=== PATIENT | male | born 1955 | race Caucasian/White ===

== ENCOUNTER 2017-05-04 09:58 | Inpatient (IN) | payer OTHER ==
[~2017-05-04] VITALS: Ht 167.6 cm; Wt 63.6 kg
[2017-05-04 10:02] VITALS: Ht 167.6 cm; Wt 63.6 kg
[2017-05-04] MEDS ORDERED: FAMOTIDINE 20 MG INJ IV STA (10:20)
[2017-05-04] MEDS ORDERED: ONDANSETRON 4 MG INJ IV STA (10:20)
[2017-05-04] MEDS ORDERED: SOD CHLORIDE 0.9% 1,000 ML IV STA (10:20)
[2017-05-04] MEDS ORDERED: morphine 4 MG/ML VIAL IV STA (10:55)
[2017-05-04 10:57] LABS: BASOPHIL # 0.1 10^3/ul (0.0-0.1); BASOPHILS % 0.5 % (0.0-2.0); HEMATOCRIT 41.5 % (42.0-52.0); HEMOGLOBIN 13.6 g/dl (14.0-18.0); LYMPHOCYTES # 2.7 10^3/ul (0.8-2.9); LYMPHOCYTES % 18.1 % (15.0-51.0); MEAN CORPUSCULAR HEMOGLOBIN 28.3 pg (29.0-33.0); MEAN CORPUSCULAR HGB CONC 32.8 g/dl (32.0-37.0); MEAN CORPUSCULAR VOLUME 86.5 fl (82.0-101.0); MEAN PLATELET VOLUME 10.5 fl (7.4-10.4); MONOCYTE # 1.1 10^3/ul (0.3-0.9); MONOCYTES % 7.3 % (0.0-11.0); NEUTROPHIL # 9.7 10^3/ul (1.6-7.5); NEUTROPHILS % 66.4 % (39.0-77.0); PLATELET COUNT 369 10^3/UL (140-415); RED CELL DISTRIBUTION WIDTH 13.9 % (11.5-14.5); WHITE BLOOD COUNT 14.6 10^3/ul (4.8-10.8)
[2017-05-04 11:05] LABS: ADD UMIC YES; UR ASCORBIC ACID NEGATIVE (NEGATIVE); UR BILIRUBIN (Dip) NEGATIVE (NEGATIVE); UR BLOOD (Dip) 1+ mg/dL (NEGATIVE); UR CLARITY CLEAR (CLEAR); UR COLOR YELLOW (YELLOW); UR GLUCOSE (Dip) 1+ mg/dL (NEGATIVE); UR KETONES (Dip) TRACE mg/dL (NEGATIVE); UR LEUKOCYTE ESTERASE (Dip) NEGATIVE Leu/ul (NEGATIVE); UR MUCUS FEW /HPF (NONE SEEN); UR NITRITE (Dip) NEGATIVE (NEGATIVE); UR RBC 2 /HPF (0-5); UR SPECIFIC GRAVITY (Dip) 1.016 (1.003-1.030); UR TOTAL PROTEIN (Dip) NEGATIVE (NEGATIVE); UR UROBILINOGEN (Dip) 2+ mg/dL (NEGATIVE)
[2017-05-04 11:21] LABS: ALANINE AMINOTRANSFERASE 23 IU/L (13-69); ALBUMIN 3.7 g/dl (3.3-4.9); ALBUMIN/GLOBULIN RATIO 0.94; ALKALINE PHOSPHATASE 114 IU/L (42-121); ANION GAP 15 (8-16); ASPARTATE AMINO TRANSFERASE 25 IU/L (15-46); BILIRUBIN,INDIRECT 0.7 mg/dl (0-1.1); BILIRUBIN,TOTAL 0.7 mg/dl (0.2-1.3); BLOOD UREA NITROGEN 9 mg/dl (7-20); CALCIUM 8.5 mg/dl (8.4-10.2); CARBON DIOXIDE 22 mmol/L (21-31); CHLORIDE 101 mmol/L (97-110); CREATININE 0.75 mg/dl (0.61-1.24); GLUCOSE 264 mg/dl (70-220); SODIUM 134 mmol/L (135-144); TOTAL PROTEIN 7.6 g/dl (6.1-8.1)
--- NOTE | 2017-05-04 11:30 | RADRPT ---
PROCEDURE: CT Abdomen and Pelvis without contrast. CLINICAL INDICATION: Abdominal pain TECHNIQUE: CT scan of the abdomen and pelvis was performed on a multidetector high-resolution CT s [employer] without intravenous contrast. Coronal and sagittal reformatted images were obtained from the axial source images. Images were reviewed on a high-resolution PACS workstation. The total exam CTD I equals 8mGy and the total exam DLP equals 480mGy-cm. One or more of the following dose reduction t echniques were used: Automated exposure control, Adjustment of the mA and/or kV according to patient size, and/or use of iterative reconstruction technique. DICOM images are available. COMPARISON: None. FINDINGS: Evaluation of the solid organs is limited given the lack of intravenous contrast administration. Bibasilar atelectasis and scarring. Noncontrast liver, adrenals and spleen are grossly unremarkable. No pancreatic ductal dilatation chris ntified. Gallbladder is partially compressed. Circumferential wall thickening of the gastric body with a large gastrohepatic and peripancreatic ly mph nodes. No hydronephrosis. No renal or ureteral stone. 5.6 x 7.4 cm left abdominal sigmoid colon mass with near complete occlusion of the lumen. Diffuse co lonic diverticulosis. There is an additional mass-like lesion at the inferior aspect of the appendix measuring 5.2 x 5.5 cm with surrounding inflammatory stranding. Enlarged scattered mesenteric and r etroperitoneal lymph nodes are identified. Additional soft tissue mass adjacent to the gallbladder measures 5.9 x 7.1 cm with surrounding infla mmation. No significant ascites or evidence of pneumoperitoneum. Aortoiliac atherosclerosis. IMPRESSION: Multiple intra-abdominal masses are identified involving the stomach, sigmoid colon, gallbladder fos sa region, and tip of the appendix with surrounding inflammatory change. There is also enlarged mese nteric and retroperitoneal lymphadenopathy. The findings are most compatible with metastatic disease and/or lymphoma. Follow-up contrast-enhanced CT/MR imaging and PET imaging can be obtained if zoran anted. A call report was made to Dr. Urbina at 05/04/2017 11:28:44 AM. RPTAT: AA .Marquez Greer MD, Date Time Electronically viewed and signed by .Marquez Greer MD, on 05/04/2017 11:29 .T/
[2017-05-04 11:32] LABS: TROPONIN-I < 0.012 ng/ml (0.00-0.12)
[2017-05-04] MEDS ORDERED: ACET-2047 PO (12:46)
[2017-05-04] MEDS ORDERED: PIPER-TAZO 3.375 GM IV (PMX) 50 ML IV ONE (13:00)
[2017-05-04] MEDS ORDERED: SOD CHLORIDE 0.9% 1,000 ML IV SCH (13:28)
[2017-05-04] MEDS ORDERED: ONDANSETRON 4 MG INJ IV PRN ×2 (13:30→14:30)
[2017-05-04] MEDS ORDERED: ACETAMINOPHEN 325 MG TAB PO PRN ×2 (13:30→14:30)
--- NOTE | 2017-05-04 13:35 | ERD ---
ER Documentation Chief Complaint Chief Complaint abdominal pain and vomiting x 3 weeks HPI This is a 61-year-old male with no previous medical conditions ,according to the patient and patient's family members, who presents to the emergency room for evaluation of abdominal pain and vomiting. This patient states that he has had these symptoms for approximately 3 weeks duration. He localizes the abdominal pain to the total portion of his abdomen and describes as a crampy and achy sensation. He states is somewhat improved with vomiting. The patient denies any blood in the vomit and denies having any diarrhea or fevers or chills and came to the ER today for evaluation of his symptoms. He denies any aggravating factors for his symptoms ROS All systems reviewed and are negative except as per history of present illness. Medications Home Meds Reported Medications Acetaminophen* (Acetaminophen*) 650 Mg Tablet, 650 MG PO Q6H Y for PAIN AND OR ELEVATED TEMP, #30 TAB 05/04/17 Allergies Allergies: Coded Allergies: No Known Allergy (Unverified , 05/04/17) PMhx/Soc Medical and Surgical Hx: pt denies Medical Hx, pt denies Surgical Hx Hx Alcohol Use: No Hx Substance Use: No Hx Tobacco Use: No Smoking Status: Never smoker Physical Exam Vitals Vital Signs Date Time Temp Pulse Resp B/P Pulse Ox O2 Delivery O2 Flow Rate FiO2 05/04/17 10:02 98.3 89 18 128/77 96 Physical Exam INITIAL VITAL SIGNS: Reviewed by me GENERAL: The patient is well developed and appropriate for usual state of health in no apparent distress HEENT: Pupils equal, round, and reactive to light. EOMI. There is no scleral icterus. NECK: C-spine is soft and supple, there is no meningismus. There is no cervical lymphadenopathy. LUNGS: Clear to auscultation bilaterally. There are no rales, wheezes or rhonchi. HEART: Regular rate and rhythm, no murmurs, clicks, rubs or gallops. ABDOMEN: Tender to palpation in the left upper quadrant and left lower quadrant , mild guarding EXTREMITIES: There is no peripheral cyanosis or edema. No focal swelling or erythema. NEUROLOGICAL: The patient moves all four extremities with 5/5 strength. Cranial nerves II - XII are intact. Normal gait. Alert and oriented SKIN: There is no apparent rash or petechiae. HEME/LYMPHATIC: There is no evidence of excessive bruising or lymphedema. PSYCHIATRIC: The patient does not appear anxious or depressed. Result Diagram: 05/04/17 1035 05/04/17 1035 Results 24 hrs Laboratory Tests Test 05/04/17 10:35 White Blood Count 14.610^3/ul Red Blood Count 4.8010^6/ul Hemoglobin 13.6g/dl Hematocrit 41.5% Mean Corpuscular Volume 86.5fl Mean Corpuscular Hemoglobin 28.3pg Mean Corpuscular Hemoglobin Concent 32.8g/dl Red Cell Distribution Width 13.9% Platelet Count 39346^3/UL Mean Platelet Volume 10.5fl Neutrophils % 66.4% Lymphocytes % 18.1% Monocytes % 7.3% Eosinophils % 7.0% Basophils % 0.5% Nucleated Red Blood Cells % 0.0/100WBC Neutrophils # 9.710^3/ul Lymphocytes # 2.710^3/ul Monocytes # 1.110^3/ul Eosinophils # 1.010^3/ul Basophils # 0.110^3/ul Nucleated Red Blood Cells # 0.010^3/ul Urine Color YELLOW Urine Clarity CLEAR Urine pH 5.0 Urine Specific [place] 1.016 Urine Ketones TRACEmg/dL Urine Nitrite NEGATIVEmg/dL Urine Bilirubin NEGATIVEmg/dL Urine Urobilinogen 2+mg/dL Urine Leukocyte Esterase NEGATIVELeu/ul Urine Microscopic RBC 2/HPF Urine Microscopic WBC 1/HPF Urine Mucus FEW/HPF Urine Hemoglobin 1+mg/dL Urine Glucose 1+mg/dL Urine Total Protein NEGATIVEmg/dl Sodium Level 134mmol/L Potassium Level 4.0mmol/L Chloride Level 101mmol/L Carbon Dioxide Level 22mmol/L Anion Gap 15 Blood Urea Nitrogen 9mg/dl Creatinine 0.75mg/dl Glucose Level 264mg/dl Calcium Level 8.5mg/dl Total Bilirubin 0.7mg/dl Direct Bilirubin 0.00mg/dl Indirect Bilirubin 0.7mg/dl Aspartate Amino Transf (AST/SGOT) 25IU/L Alanine Aminotransferase (ALT/SGPT) 23IU/L Alkaline Phosphatase 114IU/L Troponin I < 0.012ng/ml Total Protein 7.6g/dl Albumin 3.7g/dl Globulin 3.90g/dl Albumin/Globulin Ratio 0.94 Lipase 84U/L Current Medications Medications (Trade) Dose Ordered Sig/Mary Route PRN Reason Start Time Stop Time Status Last Admin Dose Admin Sodium Chloride (NS) 1,000 ml @ 1,000 mls/hr Q1H STAT IV 05/04/17 10:20 05/04/17 11:19 DC 05/04/17 10:48 Ondansetron HCl (Zofran Inj) 4 mg ONCE STAT IV 05/04/17 10:20 05/04/17 10:22 DC 05/04/17 10:48 Famotidine (Pepcid Iv) 20 mg ONCE STAT IV 05/04/17 10:20 05/04/17 10:22 DC 05/04/17 10:46 Morphine Sulfate 4 mg 4 mg ONCE STAT IV 05/04/17 10:55 05/04/17 10:56 DC 05/04/17 11:00 Piperacillin Sod/ Tazobactam Sod (Zosyn 3.375gm/ 50 ml (Pmx)) 50 ml @ 100 mls/hr ONCE ONCE IV 05/04/17 13:00 05/04/17 13:29 DC 05/04/17 13:26 Procedures/MDM CT abdomen pelvis without: Multiple intra-abdominal masses are identified involving the stomach, sigmoid colon, gallbladder fossa region, and tip of the appendix with surrounding inflammatory change. There is also enlarged mesenteric and retroperitoneal lymphadenopathy. The findings are most compatible with metastatic disease and/or lymphoma. Follow-up contrast- enhanced CT/MR imaging and PET imaging can be obtained if warranted. This 61-year-old male presents to the ER for evaluation of abdominal pain, nausea and vomiting. According to the patient's family members he does not have any previous medical conditions however after further valuation in questioning this patient has not seen a physician in over a year. This patient did have some tenderness in his abdomen, and a CT of the abdomen and pelvis was obtained which shows multiple intra-abdominal masses involving organs such as the stomach, sigmoid colon, and gallbladder fossa region. This patient was given morphine for his pain, and I have started the patient on Zosyn at this time. I have spoken with the patient in regards to his CAT scan findings and he was completely unaware of any type of abdominal mass that he might have. Given this patient's unfortunate circumstance and inability to obtain any follow -up or establish primary care this patient will be placed in for admission at this time. His pain is controlled with morphine and nausea and vomiting is controlled with Zofran at this time. I have contacted her general surgeon on- call, Dr. Hernadez who would like gastroenterology to be consulted. I have relayed this information to the admitting physician Dr. Steward who accepts the patient. This patient is hemodynamically stable and will be placed in for admission the [facility] floor Departure Diagnosis: Primary Impression: Colon cancer Additional Impressions: Mass of stomach Abdominal pain Nausea & vomiting Condition: SYDNEY Covarrubias DO May 04, 2017 13:35
[2017-05-04] MEDS ORDERED: BISACODYL (EC) 5 MG TAB PO PRN (14:30)
[2017-05-04] MEDS ORDERED: IBUPROFEN 600 MG TAB PO PRN (14:30)
[2017-05-04] MEDS ORDERED: morphine 2 MG INJ IV PRN (14:30)
[2017-05-04] MEDS ORDERED: NACL 0.9% 3 ML SYG IV SCH (14:30)
[2017-05-04] MEDS ORDERED: DOCUSATE SODIUM 100 MG CAP PO PRN (14:30)
[2017-05-04] MEDS ORDERED: MAGNESIUM HYDROXIDE 30ML CUP PO PRN (14:30)
[2017-05-04] MEDS ORDERED: ONDANSETRON 4 MG TAB PO PRN (14:30)
--- NOTE | 2017-05-04 15:02 | HP ---
Date/Time of Note Date/Time of Note DATE: 05/04/17 TIME: 14:58 Assessment/Plan VTE Prophylaxis VTE Prophylaxis Intervention: SCD's Assessment/Plan Assessment/Plan 61 yo M presents with 3 weeks of abd pain found to have multiple intraabdominal masses concerning for malignancy of abd primary v lymphoma -gen surg and GI consults for tissue sampling -pain control -general diet as no impending surgeries planned -leukocytosis likely reactive. no compelling indication for abx -BG high, will check a1c HPI/ROS Admit Date/Time Admit Date/Time Hx of Present Illness Of note, pt primarily Colombian speaking. language line used to facilitate communication. CC abd pain x 3 weeks HPI 61 yo M with no known chronic medical problems on no chronic medications presents with 3 weeks of abd pain and vomitting. reports weight loss of unknown amt over these past 3 weeks. no diarrhea, +constipation for the past 2 days no rashes, no chest pain, no SOB, no edema fam hx: sister with breast ca PMH/Family/Social Social History lives in the community Smoking Status: Never smoker Exam/Review of Systems Vital Signs Vitals Vital Signs Date Time Temp Pulse Resp B/P Pulse Ox O2 Delivery O2 Flow Rate FiO2 05/04/17 10:02 98.3 89 18 128/77 96 Exam Exam nad EOMI MMM no mrg lungs clear abd soft, nondistended no rashes no edema labs reviewed, BG high imaging with abd tumors Labs Result Diagram: 05/04/17 1035 05/04/17 1035 Medications Medications Current Medications Sodium Chloride (NS) 1,000 ml @ 80 mls/hr [id number] IV ; Start 05/04/17 at 13:28 ; Stop 05/05/17 at 01:57 Ondansetron HCl (Zofran Tab) 4 mg Q6H PRN PO NAUSEA AND/OR VOMITING; Start at 14:30 Ondansetron HCl (Zofran Inj) 4 mg Q6H PRN IV NAUSEA AND/OR VOMITING; Start at 14:30 Acetaminophen (Tylenol Tab) 650 mg Q6H PRN PO PAIN LEVEL 1-3 OR FEVER; Start 05/04/17 at 14:30 Ibuprofen (Motrin) 600 mg Q6H PRN PO PAIN LEVEL 1-3; Start 05/04/17 at 14:30 Acetaminophen/ Hydrocodone Bitart ([place] (5/325)) 1 tab Q6H PRN PO MODERATE PAIN LEVEL 4-6; Start 05/04/17 at 14:30 Morphine Sulfate (morphine) 2 mg Q4H PRN IV SEVERE PAIN LEVEL 7-10; Start at 14:30 Docusate Sodium (Colace) 100 mg Q12H PRN PO CONSTIPATION; Start 05/04/17 at 14 :30 Magnesium Hydroxide (Milk Of Mag) 30 ml DAILY PRN PO CONSTIPATION; Start 05/04 at 14:30 Bisacodyl (Dulcolax) 5 mg DAILY PRN PO CONSTIPATION; Start 05/04/17 at 14:30 KONRAD WOO MD May 04, 2017 15:02
[2017-05-04 15:36] VITALS: BP 92/62; PULSE 81; RESP 16
--- NOTE | 2017-05-04 17:43 | CONS ---
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 No acute surgical issues at this point 2. further workup to determine primary 3. may need EGD or colonoscopy or percutaneous biopsy of gallbladder lesion Consultation Date/Type/Reason Admit Date/Time Date of Consultation: May 04, 2017 Reason for Consultation abdominal pain Hx of Present Illness 61-year-old male, who is in his usual state of health, developed acute onset of abdominal pain. Patient has had 13 day history of nausea and emesis. He was hopeful that his symptoms would resolve on their own. However, his symptoms persisted and he presented to the er. Past Medical History Medical History: no pertinent history Past Surgical History Past Surgical Hx: no surgical history Family History Significant Family History: no pertinent family hx Social History Alcohol Use: none Smoking Status: Never smoker Exam/Review of Systems Vital Signs Vitals Vital Signs Date Time Temp Pulse Resp B/P Pulse Ox O2 Delivery O2 Flow Rate FiO2 05/04/17 15:36 98.2 81 16 92/62 94 Room Air Exam Constitutional: alert, oriented, well developed Psych: no complaints Eyes: nl conjunctiva ENMT: nl external ears & nose Neck: supple Respiratory: clear to auscultation Cardiovascular: regular rate and rhythm Gastrointestinal: other (, nondistended, some periumbilical tenderness), soft Musculoskeletal: nl extremities to inspection Neurological: 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 Skin: nl turgor Results Result Diagram: 05/04/17 1035 05/04/17 1035 Results 24 hrs Laboratory Tests Test 05/04/17 10:35 White Blood Count 14.6 H Red Blood Count 4.80 Hemoglobin 13.6 L Hematocrit 41.5 L Mean Corpuscular Volume 86.5 Mean Corpuscular Hemoglobin 28.3 L Mean Corpuscular Hemoglobin Concent 32.8 Red Cell Distribution Width 13.9 Platelet Count 369 Mean Platelet Volume 10.5 H Neutrophils % 66.4 Lymphocytes % 18.1 Monocytes % 7.3 Eosinophils % 7.0 Basophils % 0.5 Nucleated Red Blood Cells % 0.0 Neutrophils # 9.7 H Lymphocytes # 2.7 Monocytes # 1.1 H Eosinophils # 1.0 H Basophils # 0.1 Nucleated Red Blood Cells # 0.0 Urine Color YELLOW Urine Clarity CLEAR Urine pH 5.0 Urine Specific [place] 1.016 Urine Ketones TRACE A Urine Nitrite NEGATIVE Urine Bilirubin NEGATIVE Urine Urobilinogen 2+ H Urine Leukocyte Esterase NEGATIVE Urine Microscopic RBC 2 Urine Microscopic WBC 1 Urine Mucus FEW A Urine Hemoglobin 1+ H Urine Glucose 1+ H Urine Total Protein NEGATIVE Sodium Level 134 L Potassium Level 4.0 Chloride Level 101 Carbon Dioxide Level 22 Anion Gap 15 Blood Urea Nitrogen 9 Creatinine 0.75 Glucose Level 264 H Calcium Level 8.5 Total Bilirubin 0.7 Direct Bilirubin 0.00 Indirect Bilirubin 0.7 Aspartate Amino Transf (AST/SGOT) 25 Alanine Aminotransferase (ALT/SGPT) 23 Alkaline Phosphatase 114 Troponin I < 0.012 Total Protein 7.6 Albumin 3.7 Globulin 3.90 H Albumin/Globulin Ratio 0.94 Lipase 84 Imaging Free Text/Dictation PROCEDURE: CT Abdomen and Pelvis without contrast. CLINICAL INDICATION: Abdominal pain TECHNIQUE: CT scan of the abdomen and pelvis was performed on a multidetector high-resolution CT scanner without intravenous contrast. Coronal and sagittal reformatted images were obtained from the axial source images. Images were reviewed on a high-resolution PACS workstation. The total exam CTDI equals 8mGy and the total exam DLP equals 480mGy-cm. One or more of the following dose reduction techniques were used: Automated exposure control, Adjustment of the mA and/or kV according to patient size, and/or use of iterative reconstruction technique. DICOM images are available. COMPARISON: None. FINDINGS: Evaluation of the solid organs is limited given the lack of intravenous contrast administration. Bibasilar atelectasis and scarring. Noncontrast liver, adrenals and spleen are grossly unremarkable. No pancreatic ductal dilatation identified. Gallbladder is partially compressed. Circumferential wall thickening of the gastric body with a large gastrohepatic and peripancreatic lymph nodes. No hydronephrosis. No renal or ureteral stone. 5.6 x 7.4 cm left abdominal sigmoid colon mass with near complete occlusion of the lumen. Diffuse colonic diverticulosis. There is an additional mass-like lesion at the inferior aspect of the appendix measuring 5.2 x 5.5 cm with surrounding inflammatory stranding. Enlarged scattered mesenteric and retroperitoneal lymph nodes are identified. Additional soft tissue mass adjacent to the gallbladder measures 5.9 x 7.1 cm with surrounding inflammation. No significant ascites or evidence of pneumoperitoneum. Aortoiliac atherosclerosis. IMPRESSION: Multiple intra-abdominal masses are identified involving the stomach, sigmoid colon, gallbladder fossa region, and tip of the appendix with surrounding inflammatory change. There is also enlarged mesenteric and retroperitoneal lymphadenopathy. The findings are most compatible with metastatic disease and/ or lymphoma. Follow-up contrast-enhanced CT/MR imaging and PET imaging can be obtained if warranted. Medications Medications Current Medications Sodium Chloride (NS) 1,000 ml @ 80 mls/hr [id number] IV ; Start 05/04/17 at 13:28 ; Stop 05/05/17 at 01:57 Ondansetron HCl (Zofran Tab) 4 mg Q6H PRN PO NAUSEA AND/OR VOMITING; Start at 14:30 Ondansetron HCl (Zofran Inj) 4 mg Q6H PRN IV NAUSEA AND/OR VOMITING; Start at 14:30 Acetaminophen (Tylenol Tab) 650 mg Q6H PRN PO PAIN LEVEL 1-3 OR FEVER; Start 05/04/17 at 14:30 Ibuprofen (Motrin) 600 mg Q6H PRN PO PAIN LEVEL 1-3; Start 05/04/17 at 14:30 Acetaminophen/ Hydrocodone Bitart ([place] (5/325)) 1 tab Q6H PRN PO MODERATE PAIN LEVEL 4-6; Start 05/04/17 at 14:30 Morphine Sulfate (morphine) 2 mg Q4H PRN IV SEVERE PAIN LEVEL 7-10; Start at 14:30 Docusate Sodium (Colace) 100 mg Q12H PRN PO CONSTIPATION; Start 05/04/17 at 14 :30 Magnesium Hydroxide (Milk Of Mag) 30 ml DAILY PRN PO CONSTIPATION; Start 05/04 at 14:30 Bisacodyl (Dulcolax) 5 mg DAILY PRN PO CONSTIPATION; Start 05/04/17 at 14:30 Influenza Virus Vaccine (Fluzone) 0.5 ml ONCE ONCE IM* ; Start 05/04/17 at 20: 00; Stop 05/04/17 at 20:01 PRAMOD ALLAN MD May 04, 2017 17:43
--- NOTE | 2017-05-04 18:09 | CONS ---
Date/Time of Note Date/Time of Note DATE: 05/04/17 TIME: 17:50 Assessment/Plan Assessment/Plan Chief Complaint/Hosp Course Summary Assessment and Plan: Assessment: Multiple intra-abd masses concerning for malignancy of abd primary v lymphoma Abd pain-likely secondary to above Nausea/vomiting- likely secondary to above Leukocytosis-likely inflammatory response Plan: Clear liquids today and tomorrow until 10am Then NPO after 10am Plan for EGD and colonoscopy versus sigmoidoscopy Endoscopy - risks/benefits/alternatives/indications of procedure and sedation/ anesthesia discussed with patient who states understanding and gives informed consent to proceed. PARQ held and questions were answered. 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 Patient presented to the ER with ongoing abdominal pain, nausea, vomiting times the past 3 weeks. Pain is described as a cramping relieved with the use of Tylenol aggravated with eating. He has lost 5-10 pounds in the past 3 weeks due to poor appetite. at the time of evaluation patient denies nausea stated he did vomit yesterday, he denies constipation, diarrhea, dysphagia, odynophagia, hematochezia, or hematemesis. Upon initial evaluation in the ER CAT scan was obtained showing a 5.6 x 7.4 cm left abdominal sigmoid colon mass with near complete occlusion of the lumen. Diffuse colonic diverticulosis. Multiple intra-abdominal masses are identified involving the stomach, gallbladder fossa region, and tip of the appendix with surrounding inflammatory change. There is also enlarged mesenteric and retroperitoneal lymphadenopathy. The findings are most compatible with metastatic disease and/or lymphoma. Patient states he has never had an EGD or colonoscopy, denies family history of colon cancer. Plan to change diet to clear liquids n.p.o. after 10 AM tomorrow and plan for EGD and colonoscopy versus sigmoidoscopy tomorrow. With sigmoid colon mass mass near complete occlusion of the lumen, will give lactulose 60 mg every 2 hours 3 doses and tap water enemas tomorrow at noon in lieu of traditional prep. Discussed plan with patient who verbalizes understanding and is in agreement Past Medical History: Previous lower abdominal surgery at age 15 Allergies: No known allergies PHYSICAL EXAMINATION: GENERAL: Well developed, well nourished, alert & oriented x 3, in no acute distress SKIN: No lesions, no stigmata chronic liver disease, no evidence of bleeding diathesis LYMPHATIC: No palpable lymphadenopathy. HEAD: Normocephalic, atraumatic, no tenderness. EYES: Pupils equal reactive to light and accommodation, full extraocular movements, sclera clear, non-icteric, no discharge. EARS/NOSE AND THROAT: Ears normal, nose normal, oropharynx normal, oral membranes well hydrated without lesions. NECK: Supple, no masses CHEST: Inspection within normal limits. CARDIOVASCULAR: Heart: Regular rate and rhythm, no murmurs, gallops or rubs. RESPIRATORY: Lungs clear to auscultation and percussion, no wheezing, no rubs GASTROINTESTINAL AND LIVER: Abdomen: Soft, non tenderness, non-distended, no hernias, no organomegaly, no ascites, no guarding, no rebound tenderness, normoactive bowel sounds. Rectal: Deferred. GENITOURINARY: Male genitalia within normal limits. EXTREMITIES: No cyanosis, clubbing or edema. Problems: Consultation Date/Type/Reason Admit Date/Time Date of Consultation: May 04, 2017 Type of Consultation: GI Reason for Consultation Multiple intra-abdominal masses Psychological: no complaints Past Medical History Medical History: no pertinent history Past Surgical History Past Surgical Hx: no surgical history Social History Alcohol Use: none Smoking Status: Never smoker Exam/Review of Systems Vital Signs Vitals Vital Signs Date Time Temp Pulse Resp B/P Pulse Ox O2 Delivery O2 Flow Rate FiO2 05/04/17 15:36 98.2 81 16 92/62 94 Room Air Results Result Diagram: 05/04/17 1035 05/04/17 1035 Results 24 hrs Laboratory Tests Test 05/04/17 10:35 White Blood Count 14.6 H Red Blood Count 4.80 Hemoglobin 13.6 L Hematocrit 41.5 L Mean Corpuscular Volume 86.5 Mean Corpuscular Hemoglobin 28.3 L Mean Corpuscular Hemoglobin Concent 32.8 Red Cell Distribution Width 13.9 Platelet Count 369 Mean Platelet Volume 10.5 H Neutrophils % 66.4 Lymphocytes % 18.1 Monocytes % 7.3 Eosinophils % 7.0 Basophils % 0.5 Nucleated Red Blood Cells % 0.0 Neutrophils # 9.7 H Lymphocytes # 2.7 Monocytes # 1.1 H Eosinophils # 1.0 H Basophils # 0.1 Nucleated Red Blood Cells # 0.0 Urine Color YELLOW Urine Clarity CLEAR Urine pH 5.0 Urine Specific [place] 1.016 Urine Ketones TRACE A Urine Nitrite NEGATIVE Urine Bilirubin NEGATIVE Urine Urobilinogen 2+ H Urine Leukocyte Esterase NEGATIVE Urine Microscopic RBC 2 Urine Microscopic WBC 1 Urine Mucus FEW A Urine Hemoglobin 1+ H Urine Glucose 1+ H Urine Total Protein NEGATIVE Sodium Level 134 L Potassium Level 4.0 Chloride Level 101 Carbon Dioxide Level 22 Anion Gap 15 Blood Urea Nitrogen 9 Creatinine 0.75 Glucose Level 264 H Calcium Level 8.5 Total Bilirubin 0.7 Direct Bilirubin 0.00 Indirect Bilirubin 0.7 Aspartate Amino Transf (AST/SGOT) 25 Alanine Aminotransferase (ALT/SGPT) 23 Alkaline Phosphatase 114 Troponin I < 0.012 Total Protein 7.6 Albumin 3.7 Globulin 3.90 H Albumin/Globulin Ratio 0.94 Lipase 84 Medications Medications Current Medications Sodium Chloride (NS) 1,000 ml @ 80 mls/hr [id number] IV ; Start 05/04/17 at 13:28 ; Stop 05/05/17 at 01:57 Ondansetron HCl (Zofran Tab) 4 mg Q6H PRN PO NAUSEA AND/OR VOMITING; Start at 14:30 Ondansetron HCl (Zofran Inj) 4 mg Q6H PRN IV NAUSEA AND/OR VOMITING; Start at 14:30 Acetaminophen (Tylenol Tab) 650 mg Q6H PRN PO PAIN LEVEL 1-3 OR FEVER; Start 05/04/17 at 14:30 Ibuprofen (Motrin) 600 mg Q6H PRN PO PAIN LEVEL 1-3; Start 05/04/17 at 14:30 Acetaminophen/ Hydrocodone Bitart ([place] (5/325)) 1 tab Q6H PRN PO MODERATE PAIN LEVEL 4-6; Start 05/04/17 at 14:30 Morphine Sulfate (morphine) 2 mg Q4H PRN IV SEVERE PAIN LEVEL 7-10; Start at 14:30 Docusate Sodium (Colace) 100 mg Q12H PRN PO CONSTIPATION; Start 05/04/17 at 14 :30 Magnesium Hydroxide (Milk Of Mag) 30 ml DAILY PRN PO CONSTIPATION; Start 05/04 at 14:30 Bisacodyl (Dulcolax) 5 mg DAILY PRN PO CONSTIPATION; Start 05/04/17 at 14:30 Influenza Virus Vaccine (Fluzone) 0.5 ml ONCE ONCE IM* ; Start 05/04/17 at 20: 00; Stop 05/04/17 at 20:01 DAVID CROOK May 04, 2017 18:02
[2017-05-04] MEDS: LACTULOSE 30ML CUP PO SCH ×3 (18:59→23:28)
[2017-05-04] MEDS ORDERED: INFLUENZA VIRUS VACCINE 0.5 ML SYG IM* ONE (20:00)
[2017-05-04 20:25] VITALS: BP 118/71; RESP 17
[2017-05-05] VITALS (11 sets, daily range): BP systolic 22–131; BP diastolic 53–73; PULSE 63–71; RESP 18–24
[2017-05-05 05:56] LABS: BASOPHIL # 0.1 10^3/ul (0.0-0.1); BASOPHILS % 0.6 % (0.0-2.0); EOSINOPHILS # 0.5 10^3/ul (0.0-0.5); EOSINOPHILS % 3.6 % (0.0-7.0); HEMATOCRIT 38.3 % (42.0-52.0); HEMOGLOBIN 12.4 g/dl (14.0-18.0); LYMPHOCYTES # 2.7 10^3/ul (0.8-2.9); LYMPHOCYTES % 20.3 % (15.0-51.0); MEAN CORPUSCULAR HEMOGLOBIN 28.4 pg (29.0-33.0); MEAN CORPUSCULAR HGB CONC 32.4 g/dl (32.0-37.0); MEAN CORPUSCULAR VOLUME 87.8 fl (82.0-101.0); MEAN PLATELET VOLUME 10.5 fl (7.4-10.4); MONOCYTES % 7.4 % (0.0-11.0); NEUTROPHILS % 67.5 % (39.0-77.0); PLATELET COUNT 370 10^3/UL (140-415); RED BLOOD COUNT 4.36 10^6/ul (4.70-6.10); RED CELL DISTRIBUTION WIDTH 14.3 % (11.5-14.5); WHITE BLOOD COUNT 13.4 10^3/ul (4.8-10.8)
[2017-05-05 06:24] LABS: CALCIUM 8.3 mg/dl (8.4-10.2); CHOL/HDL RATIO 6.9 RATIO; CREATININE 0.76 mg/dl (0.61-1.24); PHOSPHORUS 3.9 mg/dl (2.5-4.9); POTASSIUM 4.1 mmol/L (3.5-5.1)
[2017-05-05] MEDS ORDERED: INFLUENZA VIRUS VACCINE 0.5 ML (DISPENSING) IM* ONE (09:00)
--- NOTE | 2017-05-05 11:43 | PN ---
Date/Time of Note Date/Time of Note DATE: 05/05/17 TIME: 11:36 Assessment/Plan VTE Prophylaxis VTE Prophylaxis Intervention: SCD's Lines/Catheters IV Catheter Type (from Nrsg): Peripheral IV Assessment/Plan Assessment/Plan 61 yo M presents with 3 weeks of abd pain found to have multiple intraabdominal masses concerning for malignancy of abd primary v lymphoma -GI to do endoscopies today -pain control -leukocytosis likely reactive. no compelling indication for abx -Dm2: a1c here in 8s. start lantus with SSI -consider repeating UA closer to discharge Subjective 24 Hr Interval Summary Free Text/Dictation Pt resting in bed. endoscopies later today Exam/Review of Systems Vital Signs Vitals Vital Signs Date Time Temp Pulse Resp B/P Pulse Ox O2 Delivery O2 Flow Rate FiO2 05/05/17 07:58 98.0 73 18 113/72 96 05/04/17 15:36 Room Air Intake and Output 05/04/17 05/04/17 05/05/17 15:00 23:00 07:00 Intake Total 1000 ml Balance 1000 ml Exam nad no mrg lungs clear abd soft no rashes Results Result Diagram: 05/05/17 0500 05/05/17 0501 Results 24 hrs Laboratory Tests Test 05/05/17 05:00 05/05/17 05:01 White Blood Count 13.4 H Red Blood Count 4.36 L Hemoglobin 12.4 L Hematocrit 38.3 L Mean Corpuscular Volume 87.8 Mean Corpuscular Hemoglobin 28.4 L Mean Corpuscular Hemoglobin Concent 32.4 Red Cell Distribution Width 14.3 Platelet Count 370 Mean Platelet Volume 10.5 H Neutrophils % 67.5 Lymphocytes % 20.3 Monocytes % 7.4 Eosinophils % 3.6 Basophils % 0.6 Nucleated Red Blood Cells % 0.0 Neutrophils # 9.0 H Lymphocytes # 2.7 Monocytes # 1.0 H Eosinophils # 0.5 Basophils # 0.1 Nucleated Red Blood Cells # 0.0 Hemoglobin A1c 8.7 H Sodium Level 139 Potassium Level 4.1 Chloride Level 106 Carbon Dioxide Level 24 Anion Gap 13 Blood Urea Nitrogen 6 L Creatinine 0.76 Glucose Level 148 # Calcium Level 8.3 L Phosphorus Level 3.9 Magnesium Level 2.0 Triglycerides Level 110 Cholesterol Level 173 LDL Cholesterol, Calculated 126 HDL Cholesterol 25 L Cholesterol/HDL Ratio 6.9 Medications Medications Current Medications Ondansetron HCl (Zofran Tab) 4 mg Q6H PRN PO NAUSEA AND/OR VOMITING; Start at 14:30 Ondansetron HCl (Zofran Inj) 4 mg Q6H PRN IV NAUSEA AND/OR VOMITING; Start at 14:30 Acetaminophen (Tylenol Tab) 650 mg Q6H PRN PO PAIN LEVEL 1-3 OR FEVER; Start 05/04/17 at 14:30 Ibuprofen (Motrin) 600 mg Q6H PRN PO PAIN LEVEL 1-3; Start 05/04/17 at 14:30 Acetaminophen/ Hydrocodone Bitart ([place] (5/325)) 1 tab Q6H PRN PO MODERATE PAIN LEVEL 4-6; Start 05/04/17 at 14:30 Morphine Sulfate (morphine) 2 mg Q4H PRN IV SEVERE PAIN LEVEL 7-10; Start at 14:30 Docusate Sodium (Colace) 100 mg Q12H PRN PO CONSTIPATION; Start 05/04/17 at 14 :30 Magnesium Hydroxide (Milk Of Mag) 30 ml DAILY PRN PO CONSTIPATION; Start 05/04 at 14:30 Bisacodyl (Dulcolax) 5 mg DAILY PRN PO CONSTIPATION; Start 05/04/17 at 14:30 KONRAD WOO MD May 05, 2017 11:43
[2017-05-05] MEDS ORDERED: GLUCOSE GEL 15 GRAM TUBE BUCCAL PRN (12:00)
[2017-05-05] MEDS ORDERED: DEXTROSE 50% 50 ML SYRINGE IV PRN ×2 (12:00)
[2017-05-05] MEDS ORDERED: GLUCOSE GEL 15 GRAM TUBE PO PRN ×2 (12:00)
[2017-05-05] MEDS ORDERED: GLUCAGON 1 MG INJ IM PRN (12:00)
[2017-05-05] MEDS: INSULIN ASPART [NOVOLOG] 3 ML PEN SC SCH ×3 (13:00→21:00)
[2017-05-05] MEDS ORDERED: FENTAnyl 50 MCG/ML VIAL ONE (17:15)
[2017-05-05] MEDS ORDERED: PROPOFOL 20 ML ONE (17:15)
[2017-05-05] MEDS ORDERED: MIDAZOLAM 1 MG/ML 2 ML INJ ONE (17:15)
--- NOTE | 2017-05-05 17:54 | OPPN ---
Date/Time of Note Date/Time of Note DATE: 05/05/17 TIME: 17:51 Proc Note GI Procedure Date 05/05/17 Indication: other (Multiple abdominal masses) Pre-procedure Diagnosis Multiple abdominal masses Post-procedure Diagnosis Impression: Multiple gastric masses/ulcerations Probable infiltrative submucosal process Multiple biopsies obtained Multiple duodenal ulcerations and masses. Multiple biopsies obtained Plan: Review pathology Proceed with colonoscopy PPI therapy CT chest, abdomen and pelvis with contrast . Procedure Performed: Endoscopy (With biopsies) Surgeon ANDRADE CHAVEZ MD See signature line Anthropological Linguist none Anesthesia Type: MAC Anesthesiologist: DENEEN CONTRERAS MD Tourniquet Time none EBL none Transfusion required none Biopsy 1: Duodenal masses/ulcers Biopsy 2: Gastric masses/ulcers Grafts/Implants none Tubes/Drains none Complication(s) none Disposition: PACU Procedure Description Preoperative Diagnosis: After informed consent, with the patient/relatives understanding the procedure, its indications, potential risks and complications, including but not limited to : allergic reaction, bleeding, perforation or infection, and after all pertinent questions were answered to the patients satisfaction, the patient/ relatives signed witnessed informed consent. Following this, premedication was administered slowly IV push under careful cardiovascular and respiratory monitoring with pulse oximetry, automatic blood pressure, and vehicle monitor technician. Once the sedative effect was achieved the patient was place in the left lateral decubitus, the panendoscope was introduced and advanced under visual control. Careful examination of the upper gastrointestinal tract, both on insertion as well as withdrawal of the instrument disclosing the following findings: ESOPHAGUS: the mucosa of the entire esophagus was carefully examined and showed the following findings: the mucosa appears within normal limits. There is no evidence of esophagitis, varices, neoplasm, or stricture. No Hiatal Hernia identified. STOMACH: Upon entrance to the stomach air was insufflated, the gastric you distended normally. The mucosa of the fundus, body and antrum of the stomach was carefully examined both head-on and on retroflexion, and showed the following findings: There are multiple masses in the stomach which are somewhat atypical i.e. not typical adenocarcinoma. There is extensive areas of ulceration and the appearance of infiltrative process. Multiple biopsies were obtained. PYLORUS: The pylorus was carefully examined and showed the following findings: the pylorus appears patent and within normal limits, with no evidence of gastric outlet obstruction. DUODENUM: The duodenal mucosa was carefully examined in the duodenal bulb as well as the second portion of the duodenum and showed the following findings: There are several masses in the duodenal bulb and areas of ulceration. Multiple biopsies were obtained Copies To: CC: ADNRADE CHAVEZ MD, MORDO MD May 05, 2017 17:54
--- NOTE | 2017-05-05 17:58 | OPPN ---
Date/Time of Note Date/Time of Note DATE: 05/05/17 TIME: 17:54 Proc Note GI Procedure Date 05/05/17 Indication: other (Sigmoid colon mass/obstruction) Pre-procedure Diagnosis Sigmoid colon mass/obstruction Post-procedure Diagnosis Impression: Atypical mass in the sigmoid colon with partial obstruction. Multiple biopsies obtained Poor preparation precludes examination of the right side of the colon. Moderate-sized internal hemorrhoids. Plan: Review pathology CT chest, abdomen and pelvis with contrast CEA titers Clear liquid diet Oncology consult Procedure Performed: Colonoscopy (With biopsies) Surgeon ANDRADE CHAVEZ MD See signature line Geography Instructor none Anesthesia Type: MAC Anesthesiologist: DENEEN CONTRERAS MD Tourniquet Time none EBL none Transfusion required none Biopsy 1: Sigmoid colon mass Grafts/Implants none Tubes/Drains none Complication(s) none Disposition: PACU Procedure Description After informed consent, with the patient/relatives understanding the procedure, its indications and potential risks and complications, including but not limited to: Allergic reaction, bleeding, perforation, infection, and after all pertinent questions were answered to the patient's satisfaction, the patient/ relatives signed the witnessed informed consent. Following this, premedication was administered slowly IV push under careful cardiovascular and respiratory monitoring with pulse OXIMETRY, automatic blood pressure, and panel monitor. Once the sedative effect was achieved, the patient was placed in the left lateral decubitus position, digital rectal examination was performed. The colonoscope was then introduced and advanced under visual control throughout all segments of the colon including: the rectum, sigmoid, descending colon, splenic flexure, transverse colon, extremely poor preparation precluded examination beyond this point.. Careful examination of the mucosa of the lower gastrointestinal tract both on insertion as well as withdrawal of the instrument disclosed the following findings: PREPARATION QUALITY: Extremely poor right side not visualized RECTAL EXAM: The anorectal area was visualized examined and digital rectal examination performed with the following findings: No evidence of perirectal disease, no masses. COLONIC MUCOSA: The mucosa of all segments of the colon was carefully examined and showed the following findings: There is an atypical mass in the sigmoid colon leading to partial obstruction. Multiple biopsies were obtained. The preparation is extremely poor and worsening beyond the transverse colon to the point of not being adequate for examination. Moderate-sized internal hemorrhoids are present The instrument was then withdrawn, the patient tolerated the procedure well and was transferred out of the Endoscopy Suite awake and in good condition to continue recovery under observation. Copies To: : ANDRADE CHAVEZ MD, MORDO MD May 05, 2017 17:58
[2017-05-05] MEDS ORDERED: BARIUM SULF 2% 450 ML BTL (BERRY SMOOTHIE) PO ONE (18:00)
--- NOTE | 2017-05-05 18:01 | HPN ---
Date/Time of Note Date/Time of Note DATE: 05/05/17 TIME: 18:00 Interval H&P Admission Note Pt. seen H&P reviewed: No system changes ANDRADE CHAVEZ MD May 05, 2017 18:01
[2017-05-05] MEDS ORDERED: IOHEXOL 300MG/ML 150 ML BTL ONE (18:45)
[2017-05-05] MEDS ORDERED: SOD CHLORIDE 0.9% 100 ML ONE (18:45)
--- NOTE | 2017-05-06 00:39 | RADRPT ---
PROCEDURE: CT abdomen and pelvis with contrast. CLINICAL INDICATION: Multiple abdominal masses. TECHNIQUE: CT scan of the abdomen and pelvis with contrast was performed after the uneventful intrav enous administration of 85 cc of Omnipaque-300. Coronal and sagittal reformatted images were obtaine d from the axial source images. The total exam CTDI equals 7.03 mGy and the total exam DLP equals 40 6.22 mGy-cm. DICOM images are available. One or more of the following dose reduction techniques were used: - Automated exposure control. - Adjustment of the mA and/or kV according to patient size. - Use of iterative reconstruction technique. COMPARISON: CT dated 10/05/2016. FINDINGS: Visualized lower thorax: There is a small right pleural effusion and bilateral subpleural reticular and ground-glass opacities. The visualized heart is unremarkable. Hepatobiliary system and spleen: The liver is normal in size and density with no focal hepatic lesi on identified. There is no intra or extrahepatic biliary ductal dilatation. The gallbladder is unrem arkable. The spleen is unremarkable. The pancreas is unremarkable. Adrenal glands and genitourinary system: The adrenal glands are unremarkable. There are no renal ma sses or hydronephrosis. The urinary bladder is unremarkable. The prostate gland is enlarged measurin g 5 cm in diameter. The seminal vesicles are unremarkable. Gastrointestinal system: There is a centrally necrotic, heterogeneously enhancing mass measuring 4. 8 x 5.2 cm in axial dimension that appears contiguous with the distal tip of the appendix. The appen blaze is not associated with the mass is dilated measuring 18 mm in diameter and hyperemic. There is a n additional mass centered at the proximal sigmoid colon measuring 6.5 x 6.3 cm in diameter. There i s pancolonic diverticulosis. There is irregular wall thickening of the stomach, likely with an under lying mass at the gastric body. There is no evidence of bowel obstruction. Peritoneum, vascular system, lymphatics: There is no free intraperitoneal air or free fluid. There are multiple masses throughout the mesentery with a dominant mass in the periportal region. There ar e atherosclerotic changes of the aorta, which is nonaneurysmal. Musculoskeletal system and soft tissues: There is mild to moderate multilevel degenerative enthesop athy. There are no concerning osseous lesions. The soft tissues are unremarkable. IMPRESSION: 1. Dominant masses centered at the distal appendix, proximal sigmoid colon, and within the mesenter y in the periportal region. Additional smaller masses scattered throughout the mesentery, likely wit h a mass involving the stomach. These findings are most consistent with extensive metastatic disease of an uncertain primary. 2. Small right effusion interstitial disease in the visualized lung bases. 3. Vascular calcifications consistent with atherosclerosis. 4. Pancolonic diverticulosis. 5. Enlarged prostate gland. Correlate with PSA. RPTAT: HLBP .Minh Dior MD, MD Date Time Electronically viewed and signed by .Minh Dior MD, on 05/06/2017 00:39 .P/
[2017-05-06] MEDS: INSULIN ASPART [NOVOLOG] 3 ML PEN SC SCH ×6 (00:52→20:42)
[2017-05-06] MEDS: ACCU-CHEK XX SCH (02:00)
[2017-05-06 07:04] LABS: CARCINOEMBRYONIC ANTIGEN 2.8 ng/ml (0.0-5.0)
[2017-05-06 07:09] LABS: CANCER ANTIGEN 19-9 14.6 U/ml (0.0-37.0)
[2017-05-06 08:02] VITALS: BP 104/67; RESP 18
[2017-05-06] MEDS: ENOXAPARIN 40 MG/0.4 ML SYG SC SCH (09:10)
[2017-05-06] MEDS: INSULIN GLARGINE [LANtus] 3 ML PEN SC SCH (09:10)
[2017-05-06] MEDS ORDERED: SOD CHLORIDE 0.9% 100 ML ONE (09:28)
[2017-05-06] MEDS ORDERED: IODIXANOL LOCM 100 ML BTL ONE (09:29)
--- NOTE | 2017-05-06 10:33 | PN ---
Date/Time of Note Date/Time of Note DATE: 05/06/17 TIME: 10:03 Assessment/Plan VTE Prophylaxis VTE Prophylaxis Intervention: SCD's Lines/Catheters IV C[facility]ter [facility] (from [facility]): Peripheral IV Assessment/Plan Chief Complaint/Hosp Course Summary Assessment and Plan: Assessment: Multiple intra-abd masses concerning for malignancy of abd primary v lymphoma EGD 05/05/17 Impression: Multiple gastric masses/ulcerations Probable infiltrative submucosal process Multiple biopsies obtained Multiple duodenal ulcerations and masses. Multiple biopsies obtained Sigmoidoscopy 05/05/17 Impression: Atypical mass in the sigmoid colon with partial obstruction. Multiple biopsies obtained Poor preparation precludes examination of the right side of the colon. Moderate-sized internal hemorrhoids. Abd pain-likely secondary to above Nausea/vomiting- likely secondary to above Leukocytosis-likely inflammatory response Plan: Review pathology Continue PPI therapy CT chest, abdomen and pelvis with contrast- reviewed and copied below IMPRESSION: 1. Dominant masses centered at the distal appendix, proximal sigmoid colon, and within the mesentery in the periportal region. Additional smaller masses scattered throughout the mesentery, likely with a mass involving the stomach. These findings are most consistent with extensive metastatic disease of an uncertain primary. 2. Small right effusion interstitial disease in the visualized lung bases. 3. Vascular calcifications consistent with atherosclerosis. 4. Pancolonic diverticulosis. 5. Enlarged prostate gland. Correlate with PSA. CEA 2.8 (within range) CA19-9 14.6 (within range) Clear liquid diet Oncology consult Patient seen in collaboration with Subjective: Course reviewed with nursing staff Patient interviewed and examined All labs, imaging and other results reviewed The patient resting in bed, c/o some nausea- will provide anti-emetic medication PRN. Discussed results of EGD/Sigmoidoscopy (an welcome wagon host/hostess was used) currently awaiting results of biopsies. Recommend oncology consult. PHYSICAL EXAMINATION: GENERAL: Well developed, well nourished, alert & oriented x 3, in no acute distress SKIN: No lesions, no stigmata chronic liver disease, no evidence of bleeding diathesis LYMPHATIC: No palpable lymphadenopathy. HEAD: Normocephalic, atraumatic, no tenderness. EYES: Pupils equal reactive to light and accommodation, full extraocular movements, sclera clear, non-icteric, no discharge. EARS/NOSE AND THROAT: Ears normal, nose normal, oropharynx normal, oral membranes well hydrated without lesions. NECK: Supple, no masses CHEST: Inspection within normal limits. CARDIOVASCULAR: Heart: Regular rate and rhythm, no murmurs, gallops or rubs. RESPIRATORY: Lungs clear to auscultation and percussion, no wheezing, no rubs GASTROINTESTINAL AND LIVER: Abdomen: Soft, non tenderness, non-distended, no hernias, no organomegaly, no ascites, no guarding, no rebound tenderness, normoactive bowel sounds. Rectal: Deferred. GENITOURINARY: Male genitalia within normal limits. EXTREMITIES: No cyanosis, clubbing or edema. Problems: Exam/Review of Systems Vital Signs Vitals Vital Signs Date Time Temp Pulse Resp B/P Pulse Ox O2 Delivery O2 Flow Rate FiO2 05/06/17 08:02 98.0 80 18 104/67 97 05/05/17 18:40 Room Air Intake and Output 05/05/17 05/05/17 05/06/17 15:00 23:00 07:00 Intake Total 350 ml Balance 350 ml Results Result Diagram: 05/05/17 0500 05/05/17 0501 Results 24 hrs Laboratory Tests Test 05/05/17 13:54 05/05/17 18:44 05/05/17 21:16 05/06/17 00:51 Bedside Glucose 97 93 126 82 Test 05/06/17 04:37 05/06/17 05:14 05/06/17 09:00 Carcinoembryonic Antigen 2.8 CA 19-9 Antigen 14.6 Bedside Glucose 91 118 Medications Medications Current Medications Ondansetron HCl (Zofran Tab) 4 mg Q6H PRN PO NAUSEA AND/OR VOMITING; Start at 14:30 Ondansetron HCl (Zofran Inj) 4 mg Q6H PRN IV NAUSEA AND/OR VOMITING; Start at 14:30 Acetaminophen (Tylenol Tab) 650 mg Q6H PRN PO PAIN LEVEL 1-3 OR FEVER; Start 05/04/17 at 14:30 Acetaminophen/ Hydrocodone Bitart ([place] (5/325)) 1 tab Q6H PRN PO MODERATE PAIN LEVEL 4-6; Start 05/04/17 at 14:30 Morphine Sulfate (morphine) 2 mg Q4H PRN IV SEVERE PAIN LEVEL 7-10 Last administered on 05/05/17t 14:01; Admin Dose 2 MG; Start 05/04/17 at 14:30 Docusate Sodium (Colace) 100 mg Q12H PRN PO CONSTIPATION; Start 05/04/17 at 14 :30 Magnesium Hydroxide (Milk Of Mag) 30 ml DAILY PRN PO CONSTIPATION; Start 05/04 at 14:30 Bisacodyl (Dulcolax) 5 mg DAILY PRN PO CONSTIPATION; Start 05/04/17 at 14:30 Diagnostic Test (Pha) (Accu-Chek) 1 ea 02 XX ; Start 05/06/17 at 02:00 Insulin Glargine (Lantus) 10 unit DAILY@08 SC Last administered on 05/06/17 09:10; Admin Dose 10 UNIT; Start 05/06/17 at 08:00 Insulin Aspart (Novolog Insulin Pen) NOVOLOG *MILD* ALGORI... Q4 SC ; Start at 13:00 Miscellaneous Information 1 ea NOTE XX ; Start 05/05/17 at 12:00 Glucose (Glutose) 15 gm Q15M PRN PO DECREASED GLUCOSE; Start 05/05/17 at 12:00 Glucose (Glutose) 22.5 gm Q15M PRN PO DECREASED GLUCOSE; Start 05/05/17 at 12: 00 Dextrose (D50w Syringe) 25 ml Q15M PRN IV DECREASED GLUCOSE; Start 05/05/17 at 12:00 Dextrose (D50w Syringe) 50 ml Q15M PRN IV DECREASED GLUCOSE; Start 05/05/17 at 12:00 Glucagon (Glucagen) 1 mg Q15M PRN IM DECREASED GLUCOSE; Start 05/05/17 at 12: 00 Glucose (Glutose) 15 gm Q15M PRN BUCCAL DECREASED GLUCOSE; Start 05/05/17 at 12:00 Enoxaparin Sodium (Lovenox) 40 mg DAILY SC Last administered on 05/06/17 09: 10; Admin Dose 40 MG; Start 05/06/17 at 09:00 DAVID CROOK May 06, 2017 10:14
--- NOTE | 2017-05-06 11:47 | RADRPT ---
PROCEDURE: CT Chest with contrast. CLINICAL INDICATION: Multiple masses, shortness of breath TECHNIQUE: CT scan of the chest with contrast was performed on a multidetector high-resolution CT scanner. Coronal and sagittal reformatted images were obtained from the axial source images. The to kelly exam CTDI equals 10 mGy and the total exam DLP equals 369 mGy-cm. 90 cc of Isovue 300 was admini stered intravenously without reported complication. One or more of the following dose reduction tech niques were used: Automated exposure control, Adjustment of the mA and/or kV according to patient si ze, and/or use of iterative reconstruction technique. DICOM images are available. COMPARISON: Correlation abdominal CT yesterday FINDINGS: Two left upper lobe cavitary lesions are identified measuring 1.5 x 2.2 cm and 1.7 x 1.5 cm with spi culated margins. Bilateral areas of peripheral interlobular septal thickening and reticulation are seen in the bilate ral upper and lower lobes. Enlarged left hilar and mediastinal lymphadenopathy are identified. For example, a left upper paratr acheal enlarged lymph node measures 10 mm short axis. A left lower enlarged paratracheal lymph node measures 21 mm short axis. A large subcarinal lymph node measures 20 mm short axis. Right pleural thickening. No significant pleural or pericardial effusion identified. IMPRESSION: Two left upper lobe cavitary lesions are identified measuring 2.2cm and 1.7cm with spiculated margin s. Enlarged left hilar and mediastinal lymphadenopathy are also identified. Given the history, the f indings are concerning for metastatic disease. RPTAT: AA .Marquez Greer MD, Date Time Electronically viewed and signed by .Marquez Greer MD, MD on 05/06/2017 11:47 .T/
[2017-05-06 14:45] VITALS: BP 118/70; RESP 18
--- NOTE | 2017-05-06 16:22 | PN ---
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 lantus with SSI -consider repeating UA closer to discharge onc cs once path is back Subjective 24 Hr Interval Summary Free Text/Dictation Pt sleeping. stating CTs reviewed Exam/Review of Systems Vital Signs Vitals Vital Signs Date Time Temp Pulse Resp B/P Pulse Ox O2 Delivery O2 Flow Rate FiO2 05/06/17 14:45 98.2 78 18 118/70 92 05/05/17 18:40 Room Air Intake and Output 05/05/17 05/05/17 05/06/17 15:00 23:00 07:00 Intake Total 350 ml Balance 350 ml Exam sleeping resp nonlabored abd nondistended no rashes no edema Results Result Diagram: 05/05/17 0500 05/05/17 0501 Results 24 hrs Laboratory Tests Test 05/05/17 18:44 05/05/17 21:16 05/06/17 00:51 05/06/17 04:37 Bedside Glucose 93 126 82 Carcinoembryonic Antigen 2.8 CA 19-9 Antigen 14.6 Prostate Specific Antigen 0.5 Test 05/06/17 05:14 05/06/17 09:00 05/06/17 12:41 Bedside Glucose 91 118 84 Medications Medications Current Medications Ondansetron HCl (Zofran Tab) 4 mg Q6H PRN PO NAUSEA AND/OR VOMITING; Start at 14:30 Ondansetron HCl (Zofran Inj) 4 mg Q6H PRN IV NAUSEA AND/OR VOMITING; Start at 14:30 Acetaminophen (Tylenol Tab) 650 mg Q6H PRN PO PAIN LEVEL 1-3 OR FEVER; Start 05/04/17 at 14:30 Acetaminophen/ Hydrocodone Bitart ([place] (5/325)) 1 tab Q6H PRN PO MODERATE PAIN LEVEL 4-6; Start 05/04/17 at 14:30 Morphine Sulfate (morphine) 2 mg Q4H PRN IV SEVERE PAIN LEVEL 7-10 Last administered on 05/05/17 14:01; Admin Dose 2 MG; Start 05/04/17 at 14:30 Docusate Sodium (Colace) 100 mg Q12H PRN PO CONSTIPATION; Start 05/04/17 at 14 :30 Magnesium Hydroxide (Milk Of Mag) 30 ml DAILY PRN PO CONSTIPATION; Start 05/04 at 14:30 Bisacodyl (Dulcolax) 5 mg DAILY PRN PO CONSTIPATION; Start 05/04/17 at 14:30 Diagnostic Test (Pha) (Accu-Chek) 1 ea 02 XX ; Start 05/06/17 at 02:00 Insulin Glargine (Lantus) 10 unit DAILY@08 SC Last administered on 05/06/17 09:10; Admin Dose 10 UNIT; Start 05/06/17 at 08:00 Insulin Aspart (Novolog Insulin Pen) NOVOLOG *MILD* ALGORI... Q4 SC ; Start at 13:00 Miscellaneous Information 1 ea NOTE XX ; Start 05/05/17 at 12:00 Glucose (Glutose) 15 gm Q15M PRN PO DECREASED GLUCOSE; Start 05/05/17 at 12:00 Glucose (Glutose) 22.5 gm Q15M PRN PO DECREASED GLUCOSE; Start 05/05/17 at 12: 00 Dextrose (D50w Syringe) 25 ml Q15M PRN IV DECREASED GLUCOSE; Start 05/05/17 at 12:00 Dextrose (D50w Syringe) 50 ml Q15M PRN IV DECREASED GLUCOSE; Start 05/05/17 at 12:00 Glucagon (Glucagen) 1 mg Q15M PRN IM DECREASED GLUCOSE; Start 05/05/17 at 12: 00 Glucose (Glutose) 15 gm Q15M PRN BUCCAL DECREASED GLUCOSE; Start 05/05/17 at 12:00 Enoxaparin Sodium (Lovenox) 40 mg DAILY SC Last administered on 05/06/17 09: 10; Admin Dose 40 MG; Start 05/06/17 at 09:00 KONRAD WOO MD May 06, 2017 16:22
[2017-05-06 20:00] VITALS: BP 104/69; RESP 18
[2017-05-06] MEDS: HYDROCODONE/APAP (5/325) TAB PO PRN (20:47)
[2017-05-07] MEDS: INSULIN ASPART [NOVOLOG] 3 ML PEN SC SCH ×2 (00:35→05:00)
[2017-05-07] MEDS: ACCU-CHEK XX SCH (01:33)
[2017-05-07 02:14] VITALS: BP 112/66; RESP 18
[2017-05-07 07:19] VITALS: BP 112/70; RESP 18
[2017-05-07] MEDS: Insulin NOVOLOG SS MILD Algorithm (SS with meals and bedtime) SC SCH ×4 (07:20→21:00)
[2017-05-07] MEDS ORDERED: INSULIN ASPART [NOVOLOG] 3 ML PEN SC SCH (07:49)
[2017-05-07] MEDS: INSULIN GLARGINE [LANtus] 3 ML PEN SC SCH (10:05)
[2017-05-07] MEDS: ENOXAPARIN 40 MG/0.4 ML SYG SC SCH (10:18)
--- NOTE | 2017-05-07 12:15 | PN ---
Date/Time of Note Date/Time of Note DATE: 05/07/17 TIME: 12:10 Assessment/Plan VTE Prophylaxis VTE Prophylaxis Intervention: SCD's Lines/Catheters [facility] Peripheral IV Urinary Cath still in place: No Assessment/Plan Chief Complaint/Hosp Course Summary Assessment and Plan: Assessment: Multiple intra-abd masses concerning for malignancy of abd primary v lymphoma EGD 05/05/17 Impression: Multiple gastric masses/ulcerations Probable infiltrative submucosal process Multiple biopsies obtained Multiple duodenal ulcerations and masses. Multiple biopsies obtained Sigmoidoscopy 05/05/17 Impression: Atypical mass in the sigmoid colon with partial obstruction. Multiple biopsies obtained Poor preparation precludes examination of the right side of the colon. Moderate-sized internal hemorrhoids. Abd pain-likely secondary to above Nausea/vomiting- likely secondary to above Leukocytosis-likely inflammatory response Plan: Pathology pending Continue PPI therapy Oncology consult when pathology reviewed Patient seen in collaboration with Subjective: Course reviewed with nursing staff Patient interviewed and examined All labs, imaging and other results reviewed The patient resting in bed currently stable, onc consult once path is available from [facility]. No further intervention from GI indicated at this time, GI will sign off but will be available if needed. PHYSICAL EXAMINATION: GENERAL: Well developed, well nourished, alert & oriented x 3, in no acute distress SKIN: No lesions, no stigmata chronic liver disease, no evidence of bleeding diathesis LYMPHATIC: No palpable lymphadenopathy. HEAD: Normocephalic, atraumatic, no tenderness. EYES: Pupils equal reactive to light and accommodation, full extraocular movements, sclera clear, non-icteric, no discharge. EARS/NOSE AND THROAT: Ears normal, nose normal, oropharynx normal, oral membranes well hydrated without lesions. NECK: Supple, no masses CHEST: Inspection within normal limits. CARDIOVASCULAR: Heart: Regular rate and rhythm, no murmurs, gallops or rubs. RESPIRATORY: Lungs clear to auscultation and percussion, no wheezing, no rubs GASTROINTESTINAL AND LIVER: Abdomen: Soft, non tenderness, non-distended, no hernias, no organomegaly, no ascites, no guarding, no rebound tenderness, normoactive bowel sounds. Rectal: Deferred. GENITOURINARY: Male genitalia within normal limits. EXTREMITIES: No cyanosis, clubbing or edema. Problems: Exam/Review of Systems Vital Signs Vitals Vital Signs Date Time Temp Pulse Resp B/P Pulse Ox O2 Delivery O2 Flow Rate FiO2 05/07/17 07:19 99.4 83 18 112/70 95 05/05/17 18:40 Room Air Intake and Output 05/06/17 05/06/17 05/07/17 15:00 23:00 07:00 Intake Total 100 ml 1660 ml 1400 ml Output Total 1200 ml Balance 100 ml 460 ml 1400 ml Results Result Diagram: 05/05/17 0500 05/05/17 0501 Results 24 hrs Laboratory Tests Test 05/06/17 12:41 05/06/17 17:43 05/06/17 20:41 05/07/17 00:34 Bedside Glucose 84 90 97 91 Test 05/07/17 05:00 05/07/17 08:32 Bedside Glucose 98 84 Medications Medications Current Medications Ondansetron HCl (Zofran Tab) 4 mg Q6H PRN PO NAUSEA AND/OR VOMITING; Start at 14:30 Ondansetron HCl (Zofran Inj) 4 mg Q6H PRN IV NAUSEA AND/OR VOMITING; Start at 14:30 Acetaminophen (Tylenol Tab) 650 mg Q6H PRN PO PAIN LEVEL 1-3 OR FEVER; Start 05/04/17 at 14:30 Acetaminophen/ Hydrocodone Bitart ([place] (5/325)) 1 tab Q6H PRN PO MODERATE PAIN LEVEL 4-6 Last administered on 05/06/17t 20:47; Admin Dose 1 TAB; Start 05/04/17 at 14:30 Morphine Sulfate (morphine) 2 mg Q4H PRN IV SEVERE PAIN LEVEL 7-10 Last administered on 05/05/17t 14:01; Admin Dose 2 MG; Start 05/04/17 at 14:30 Docusate Sodium (Colace) 100 mg Q12H PRN PO CONSTIPATION; Start 05/04/17 at 14 :30 Magnesium Hydroxide (Milk Of Mag) 30 ml DAILY PRN PO CONSTIPATION; Start 05/04 at 14:30 Bisacodyl (Dulcolax) 5 mg DAILY PRN PO CONSTIPATION; Start 05/04/17 at 14:30 Diagnostic Test (Pha) (Accu-Chek) 1 ea 02 XX ; Start 05/06/17 at 02:00 Insulin Glargine (Lantus) 10 unit DAILY@08 SC Last administered on 05/07/17 10:05; Admin Dose 10 UNIT; Start 05/06/17 at 08:00 Miscellaneous Information 1 ea NOTE XX ; Start 05/05/17 at 12:00 Glucose (Glutose) 15 gm Q15M PRN PO DECREASED GLUCOSE; Start 05/05/17 at 12:00 Glucose (Glutose) 22.5 gm Q15M PRN PO DECREASED GLUCOSE; Start 05/05/17 at 12: 00 Dextrose (D50w Syringe) 25 ml Q15M PRN IV DECREASED GLUCOSE; Start 05/05/17 at 12:00 Dextrose (D50w Syringe) 50 ml Q15M PRN IV DECREASED GLUCOSE; Start 05/05/17 at 12:00 Glucagon (Glucagen) 1 mg Q15M PRN IM DECREASED GLUCOSE; Start 05/05/17 at 12: 00 Glucose (Glutose) 15 gm Q15M PRN BUCCAL DECREASED GLUCOSE; Start 05/05/17 at 12:00 Enoxaparin Sodium (Lovenox) 40 mg DAILY SC Last administered on 05/07/17 10: 18; Admin Dose 40 MG; Start 05/06/17 at 09:00 DAVID CROOK May 07, 2017 12:15
[2017-05-07 14:00] VITALS: BP 105/61; RESP 18
--- NOTE | 2017-05-07 15:41 | CONS ---
Date/Time of Note Date/Time of Note DATE: 05/07/17 TIME: 15:30 Assessment/Plan Assessment/Plan Additional Assessment/Plan 61 yo man with intraabdominal masses and a biopsy of a nearly completely obstructing sigmoid colon mass that is a lymphoma on preliminary pathology. Final studies including immunohistology is pending. I discussed with him that this is a cancer and that I anticipate chemotherapy will be needed but I would want the final pathology before starting it. He is anxious to go home but I suggested he not leave until we are sure that he can eat and drink without vomiting or abdominal pain. If discharged, he could f/u in my office and chemotherapy be arranged as outpatient. Discussed with Dr Abad. I would also like to talk to pt and family once pathology is finalized. Consultation Date/Type/Reason Admit Date/Time Date of Consultation: May 07, 2017 Type of Consultation: Oncology Reason for Consultation lymphoma Referring Provider: KONRAD ABAD MD Hx of Present Illness 61 yo man came to the hospital with abdominal pain and vomiting for about a couple of weeks. He also says that he lost 5 to 10 pounds but denies fevers or night sweats. He was found to have multiple abdominal masses and a partial bowel obstruction. Two lung lesions were also seen. Biopsy done by Dr. Alvarez is consistent with malignant lymphoma but the pathology is not final and the subtype is not yet known. He feels better now and is starting to eat and drink again. In the past he had an appendectomy and some type of trauma in the abdominal area. He also has likely diabetes but he was not aware of that and denies taking any medication for diabetes or any other ailment. Respiratory: shortness of breath Psychological: no complaints Past Medical History Medical History: no pertinent history Past Surgical History Past Surgical Hx: appendectomy Family History Significant Family History: no pertinent family hx Social History Alcohol Use: none Smoking Status: Never smoker Exam/Review of Systems Vital Signs Vitals Vital Signs Date Time Temp Pulse Resp B/P Pulse Ox O2 Delivery O2 Flow Rate FiO2 05/07/17 14:00 100.3 80 18 105/61 96 05/05/17 18:40 Room Air Intake and Output 05/06/17 05/06/17 05/07/17 15:00 23:00 07:00 Intake Total 100 ml 1660 ml 1400 ml Output Total 1200 ml Balance 100 ml 460 ml 1400 ml Exam Constitutional: alert, oriented Head: normocephalic Eyes: nl conjunctiva ENMT: nl external ears & nose Neck: supple Respiratory: clear to auscultation Cardiovascular: regular rate and rhythm Gastrointestinal: nl liver, spleen, non-tender, soft Extremities: normal pulses Neurological: nl mental status, nl speech Skin: nl turgor Lymph: nl lymph nodes Results Result Diagram: 05/05/17 0500 05/05/17 0501 Results 24 hrs Laboratory Tests Test 05/06/17 17:43 05/06/17 20:41 05/07/17 00:34 05/07/17 05:00 Bedside Glucose 90 97 91 98 Test 05/07/17 08:32 05/07/17 12:48 Bedside Glucose 84 80 Medications Medications Current Medications Ondansetron HCl (Zofran Tab) 4 mg Q6H PRN PO NAUSEA AND/OR VOMITING; Start at 14:30 Ondansetron HCl (Zofran Inj) 4 mg Q6H PRN IV NAUSEA AND/OR VOMITING; Start at 14:30 Acetaminophen (Tylenol Tab) 650 mg Q6H PRN PO PAIN LEVEL 1-3 OR FEVER; Start 05/04/17 at 14:30 Acetaminophen/ Hydrocodone Bitart ([place] (5/325)) 1 tab Q6H PRN PO MODERATE PAIN LEVEL 4-6 Last administered on 05/06/17t 20:47; Admin Dose 1 TAB; Start 05/04/17 at 14:30 Morphine Sulfate (morphine) 2 mg Q4H PRN IV SEVERE PAIN LEVEL 7-10 Last administered on 05/05/17t 14:01; Admin Dose 2 MG; Start 05/04/17 at 14:30 Docusate Sodium (Colace) 100 mg Q12H PRN PO CONSTIPATION; Start 05/04/17 at 14 :30 Magnesium Hydroxide (Milk Of Mag) 30 ml DAILY PRN PO CONSTIPATION; Start 05/04 at 14:30 Bisacodyl (Dulcolax) 5 mg DAILY PRN PO CONSTIPATION; Start 05/04/17 at 14:30 Diagnostic Test (Pha) (Accu-Chek) 1 ea 02 XX ; Start 05/06/17 at 02:00 Insulin Glargine (Lantus) 10 unit DAILY@08 SC Last administered on 05/07/17 10:05; Admin Dose 10 UNIT; Start 05/06/17 at 08:00 Miscellaneous Information 1 ea NOTE XX ; Start 05/05/17 at 12:00 Glucose (Glutose) 15 gm Q15M PRN PO DECREASED GLUCOSE; Start 05/05/17 at 12:00 Glucose (Glutose) 22.5 gm Q15M PRN PO DECREASED GLUCOSE; Start 05/05/17 at 12: 00 Dextrose (D50w Syringe) 25 ml Q15M PRN IV DECREASED GLUCOSE; Start 05/05/17 at 12:00 Dextrose (D50w Syringe) 50 ml Q15M PRN IV DECREASED GLUCOSE; Start 05/05/17 at 12:00 Glucagon (Glucagen) 1 mg Q15M PRN IM DECREASED GLUCOSE; Start 05/05/17 at 12: 00 Glucose (Glutose) 15 gm Q15M PRN BUCCAL DECREASED GLUCOSE; Start 05/05/17 at 12:00 Enoxaparin Sodium (Lovenox) 40 mg DAILY SC Last administered on 05/07/17 10: 18; Admin Dose 40 MG; Start 05/06/17 at 09:00 HENRY LAWS MD May 07, 2017 15:40
--- NOTE | 2017-05-07 17:35 | PN ---
Date/Time of Note Date/Time of Note DATE: 05/07/17 TIME: 17:33 Assessment/Plan VTE Prophylaxis VTE Prophylaxis Intervention: SCD's Lines/Catheters IV Catheter Type (from Nrsg): Peripheral IV Urinary Cath still in place: No Assessment/Plan Assessment/Plan 61 yo M presented with abd pain, found to have colon mass. path with lymphoma -sp inpatient onc eval. 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 lantus with SSI -repeat UA dw onc. as it will take several days for special path stains to come back and there is no urgent need to start chemotherapy within the next few days, if pt is able to tolerate PO he will be discharged and follow up within [address] Machuca in his office Exam/Review of Systems Vital Signs Vitals Vital Signs Date Time Temp Pulse Resp B/P Pulse Ox O2 Delivery O2 Flow Rate FiO2 05/07/17 14:00 100.3 80 18 105/61 96 05/05/17 18:40 Room Air Intake and Output 05/06/17 05/06/17 05/07/17 15:00 23:00 07:00 Intake Total 100 ml 1660 ml 1400 ml Output Total 1200 ml Balance 100 ml 460 ml 1400 ml Results Result Diagram: 05/05/17 0500 05/05/17 0501 Results 24 hrs Laboratory Tests Test 05/06/17 17:43 05/06/17 20:41 05/07/17 00:34 05/07/17 05:00 Bedside Glucose 90 97 91 98 Test 05/07/17 08:32 05/07/17 12:48 Bedside Glucose 84 80 Medications Medications Current Medications Ondansetron HCl (Zofran Tab) 4 mg Q6H PRN PO NAUSEA AND/OR VOMITING; Start at 14:30 Ondansetron HCl (Zofran Inj) 4 mg Q6H PRN IV NAUSEA AND/OR VOMITING; Start at 14:30 Acetaminophen (Tylenol Tab) 650 mg Q6H PRN PO PAIN LEVEL 1-3 OR FEVER; Start 05/04/17 at 14:30 Acetaminophen/ Hydrocodone Bitart ([place] (5/325)) 1 tab Q6H PRN PO MODERATE PAIN LEVEL 4-6 Last administered on 05/06/17t 20:47; Admin Dose 1 TAB; Start 05/04/17 at 14:30 Morphine Sulfate (morphine) 2 mg Q4H PRN IV SEVERE PAIN LEVEL 7-10 Last administered on 05/05/17 14:01; Admin Dose 2 MG; Start 05/04/17 at 14:30 Docusate Sodium (Colace) 100 mg Q12H PRN PO CONSTIPATION; Start 05/04/17 at 14 :30 Magnesium Hydroxide (Milk Of Mag) 30 ml DAILY PRN PO CONSTIPATION; Start 05/04 at 14:30 Bisacodyl (Dulcolax) 5 mg DAILY PRN PO CONSTIPATION; Start 05/04/17 at 14:30 Diagnostic Test (Pha) (Accu-Chek) 1 ea 02 XX ; Start 05/06/17 at 02:00 Insulin Glargine (Lantus) 10 unit DAILY@08 SC Last administered on 05/07/17 10:05; Admin Dose 10 UNIT; Start 05/06/17 at 08:00 Miscellaneous Information 1 ea NOTE XX ; Start 05/05/17 at 12:00 Glucose (Glutose) 15 gm Q15M PRN PO DECREASED GLUCOSE; Start 05/05/17 at 12:00 Glucose (Glutose) 22.5 gm Q15M PRN PO DECREASED GLUCOSE; Start 05/05/17 at 12: 00 Dextrose (D50w Syringe) 25 ml Q15M PRN IV DECREASED GLUCOSE; Start 05/05/17 at 12:00 Dextrose (D50w Syringe) 50 ml Q15M PRN IV DECREASED GLUCOSE; Start 05/05/17 at 12:00 Glucagon (Glucagen) 1 mg Q15M PRN IM DECREASED GLUCOSE; Start 05/05/17 at 12: 00 Glucose (Glutose) 15 gm Q15M PRN BUCCAL DECREASED GLUCOSE; Start 05/05/17 at 12:00 Enoxaparin Sodium (Lovenox) 40 mg DAILY SC Last administered on 05/07/17 10: 18; Admin Dose 40 MG; Start 05/06/17 at 09:00 KONRAD WOO MD May 07, 2017 17:35
[2017-05-07 20:18] VITALS: BP 116/65; RESP 19
[2017-05-07] MEDS: HYDROCODONE/APAP (5/325) TAB PO PRN (21:51)
[2017-05-08 02:00] VITALS: BP 114/57; RESP 19
[2017-05-08] MEDS: ACCU-CHEK XX SCH (02:00)
[2017-05-08 06:59] LABS: ADD UMIC NO; UR AMORPHOUS CRYSTAL MODERATE /HPF (NONE SEEN); UR ASCORBIC ACID NEGATIVE (NEGATIVE); UR BILIRUBIN (Dip) NEGATIVE (NEGATIVE); UR BLOOD (Dip) NEGATIVE (NEGATIVE); UR CLARITY SLIGHTLY CLOUDY (CLEAR); UR COLOR YELLOW (YELLOW); UR GLUCOSE (Dip) NEGATIVE (NEGATIVE); UR KETONES (Dip) NEGATIVE (NEGATIVE); UR LEUKOCYTE ESTERASE (Dip) NEGATIVE Leu/ul (NEGATIVE); UR NITRITE (Dip) NEGATIVE (NEGATIVE); UR RBC 1 /HPF (0-5); UR SPECIFIC GRAVITY (Dip) 1.008 (1.003-1.030); UR TOTAL PROTEIN (Dip) NEGATIVE (NEGATIVE); UR UROBILINOGEN (Dip) 2+ mg/dL (NEGATIVE)
[2017-05-08] MEDS: Insulin NOVOLOG SS MILD Algorithm (SS with meals and bedtime) SC SCH ×2 (07:20→11:10)
[2017-05-08 08:03] VITALS: BP 105/68; RESP 20
[2017-05-08] MEDS: INSULIN GLARGINE [LANtus] 3 ML PEN SC SCH (09:17)
[2017-05-08] MEDS: ENOXAPARIN 40 MG/0.4 ML SYG SC SCH (09:18)
--- NOTE | 2017-05-08 10:00 | PN ---
Date/Time of Note Date/Time of Note DATE: 05/08/17 TIME: 09:58 Assessment/Plan VTE Prophylaxis VTE Prophylaxis Intervention: ambulation Lines/Catheters IV Catheter Type (from [facility]): Peripheral IV Urinary Cath still in place: No Assessment/Plan Chief Complaint/Hosp Course Assessment: Multiple intra-abd masses pathology confirms lymphoma EGD 05/05/17 Impression: Multiple gastric masses/ulcerations Probable infiltrative submucosal process Multiple biopsies obtained Multiple duodenal ulcerations and masses. Multiple biopsies obtained Sigmoidoscopy 05/05/17 Impression: Atypical mass in the sigmoid colon with partial obstruction. Multiple biopsies obtained Poor preparation precludes examination of the right side of the colon. Moderate-sized internal hemorrhoids. Abd pain-likely secondary to above Nausea/vomiting- likely secondary to above Leukocytosis-likely inflammatory response Plan: Oncology consult and management Continue PPI therapy We will sign off and follow upon request Subjective: Course reviewed with nursing staff Patient interviewed and examined All labs, imaging and other results reviewed The patient is comfortable at present time Awaiting oncology consult Tolerating diet, no overt gastrointestinal bleeding Moderate diffuse abdominal pain PHYSICAL EXAMINATION: GENERAL: Well developed, well nourished, alert & oriented x 3, in no acute distress SKIN: No lesions, no stigmata chronic liver disease, no evidence of bleeding diathesis LYMPHATIC: No palpable lymphadenopathy. HEAD: Normocephalic, atraumatic, no tenderness. EYES: Pupils equal reactive to light and accommodation, full extraocular movements, sclera clear, non-icteric, no discharge. EARS/NOSE AND THROAT: Ears normal, nose normal, oropharynx normal, oral membranes well hydrated without lesions. NECK: Supple, no masses CHEST: Inspection within normal limits. CARDIOVASCULAR: Heart: Regular rate and rhythm, no murmurs, gallops or rubs. RESPIRATORY: Lungs clear to auscultation and percussion, no wheezing, no rubs GASTROINTESTINAL AND LIVER: Abdomen: Soft, non tenderness, non-distended, no hernias, no organomegaly, no ascites, no guarding, no rebound tenderness, normoactive bowel sounds. Rectal: Deferred. GENITOURINARY: Male genitalia within normal limits. EXTREMITIES: No cyanosis, clubbing or edema. Problems: Exam/Review of Systems Vital Signs Vitals Vital Signs Date Time Temp Pulse Resp B/P Pulse Ox O2 Delivery O2 Flow Rate FiO2 05/08/17 08:03 98.0 88 20 105/68 98 11/15/17 18:40 Room Air Intake and Output 05/07/17 05/07/17 05/08/17 15:00 23:00 07:00 Intake Total 1420 ml 700 ml Output Total 900 ml 920 ml Balance 520 ml -220 ml Results Result Diagram: 05/05/17 0500 05/05/17 0501 Results 24 hrs Laboratory Tests Test 05/07/17 12:48 05/07/17 17:50 05/07/17 21:44 05/08/17 05:00 Bedside Glucose 80 111 96 Urine Color YELLOW Urine Clarity SLIGHTLY CLOUDY A Urine pH 7.0 Urine Specific [place] 1.008 Urine Ketones NEGATIVE Urine Nitrite NEGATIVE Urine Bilirubin NEGATIVE Urine Urobilinogen 2+ H Urine Leukocyte Esterase NEGATIVE Urine Microscopic RBC 1 Urine Microscopic WBC 1 Urine Amorphous Crystals MODERATE Urine Hemoglobin NEGATIVE Urine Glucose NEGATIVE Urine Total Protein NEGATIVE Test 05/08/17 08:28 Bedside Glucose 88 Medications Medications Current Medications Ondansetron HCl (Zofran Tab) 4 mg Q6H PRN PO NAUSEA AND/OR VOMITING; Start at 14:30 Ondansetron HCl (Zofran Inj) 4 mg Q6H PRN IV NAUSEA AND/OR VOMITING; Start at 14:30 Acetaminophen (Tylenol Tab) 650 mg Q6H PRN PO PAIN LEVEL 1-3 OR FEVER; Start 05/04/17 at 14:30 Acetaminophen/ Hydrocodone Bitart ([place] (5/325)) 1 tab Q6H PRN PO MODERATE PAIN LEVEL 4-6 Last administered on 05/07/17 21:51; Admin Dose 1 TAB; Start 05/04/17 at 14:30 Morphine Sulfate (morphine) 2 mg Q4H PRN IV SEVERE PAIN LEVEL 7-10 Last administered on 05/05/17 14:01; Admin Dose 2 MG; Start 05/04/17 at 14:30 Docusate Sodium (Colace) 100 mg Q12H PRN PO CONSTIPATION; Start 05/04/17 at 14 :30 Magnesium Hydroxide (Milk Of Mag) 30 ml DAILY PRN PO CONSTIPATION; Start 05/04 at 14:30 Bisacodyl (Dulcolax) 5 mg DAILY PRN PO CONSTIPATION; Start 05/04/17 at 14:30 Diagnostic Test (Pha) (Accu-Chek) 1 ea 02 XX ; Start 05/06/17 at 02:00 Insulin Glargine (Lantus) 10 unit DAILY@08 SC Last administered on 05/08/17 09:17; Admin Dose 10 UNIT; Start 05/06/17 at 08:00 Miscellaneous Information 1 ea NOTE XX ; Start 05/05/17 at 12:00 Glucose (Glutose) 15 gm Q15M PRN PO DECREASED GLUCOSE; Start 05/05/17 at 12:00 Glucose (Glutose) 22.5 gm Q15M PRN PO DECREASED GLUCOSE; Start 05/05/17 at 12: 00 Dextrose (D50w Syringe) 25 ml Q15M PRN IV DECREASED GLUCOSE; Start 05/05/17 at 12:00 Dextrose (D50w Syringe) 50 ml Q15M PRN IV DECREASED GLUCOSE; Start 05/05/17 at 12:00 Glucagon (Glucagen) 1 mg Q15M PRN IM DECREASED GLUCOSE; Start 05/05/17 at 12: 00 Glucose (Glutose) 15 gm Q15M PRN BUCCAL DECREASED GLUCOSE; Start 05/05/17 at 12:00 Enoxaparin Sodium (Lovenox) 40 mg DAILY SC Last administered on 05/08/17 09: 18; Admin Dose 40 MG; Start 05/06/17 at 09:00 ANDRADE CHAVEZ MD May 08, 2017 10:00
--- NOTE | 2017-05-08 11:20 | DS ---
Date/Time of Note Date/Time of Note DATE: 05/08/17 TIME: 11:18 Discharge Summary Admission/Discharge Info Admit Date/Time May 04, 2017 at 13:28 Discharge Date/Time Discharge Diagnosis lymphoma, DM2, gastric and duodenal ulcerations Patient Condition: Stable Consults GI, oncology, general surgery Procedures 11.14 CT AP IMPRESSION: Multiple intra-abdominal masses are identified involving the stomach, sigmoid colon, gallbladder fossa region, and tip of the appendix with surrounding inflammatory change. There is also enlarged mesenteric and retroperitoneal lymphadenopathy. The findings are most compatible with metastatic disease and/ or lymphoma. Follow-up contrast-enhanced CT/MR imaging and PET imaging can be obtained if warranted. 11.15 EGD Multiple gastric masses/ulcerations Probable infiltrative submucosal process Multiple biopsies obtained Multiple duodenal ulcerations and masses. Multiple biopsies obtained CScope Atypical mass in the sigmoid colon with partial obstruction. Multiple biopsies obtained Poor preparation precludes examination of the right side of the colon. Moderate-sized internal hemorrhoids. PATH A-Duodenum, biopsies: -- Malignant lymphoma with focal ulceration. -- Non-specific duodenitis. B-Gastric masses, biopsies: -- Malignant lymphoma. -- Chronic gastritis, severe, active. -- Helicobacter pylori organisms are identified in a Giemsa stain (positive control concurrently reviewed). -- Intestinal metaplasia, focal. C-Sigmoid colon biopsy: -- Malignant lymphoma with ulceration. -- No normal mucosa is present. COMMENT: Specimen "C" has been forwarded to [facility] for the performance of a panel is immunohistochemical stains to further characterize the tumor. In addition, molecular studies for genetic alterations are also in progress. A final report will be issued following review of the immunohistochemical stains and if necessary, consultation with an expert Hematopathologist. Findings are discussed with Dr. Dulce Steward on 05/07/17. 11.16 CT chest IMPRESSION: Two left upper lobe cavitary lesions are identified measuring 2.2cm and 1.7cm with spiculated margins. Enlarged left hilar and mediastinal lymphadenopathy are also identified. Given the history, the findings are concerning for metastatic disease. a1c 8.7 Admit UA with 1+ hgb and 1+ glucose, resolved on repeat UA Hx of Present Illness Of note, pt primarily Telugu speaking. language line used to facilitate communication. CC abd pain x 3 weeks HPI 61 yo M with no known chronic medical problems on no chronic medications presents with 3 weeks of abd pain and vomitting. reports weight loss of unknown amt over these past 3 weeks. no diarrhea, +constipation for the past 2 days no rashes, no chest pain, no SOB, no edema fam hx: sister with breast ca Hospital Course 61 yo M presented with abd pain, found to have colon mass. Prelim path with lymphoma. Pt seen by oncology. Plan is for close outpatient follow up to discuss treatment options as it will be several days until path is finalized. Pt also incidentally found to have DM2. Started on insulin in the hospital. Will be discharged on PO metformin as this is a new diagnosis and patient has not yet had any diabetes education or change to control with blood sugars at home without insulin therapy. Home Meds Active Scripts Pantoprazole* (Pantoprazole*) 40 Mg Tablet.dr, 40 MG PO AC BREAKFAST for 30 Days , #30 TAB Prov:KONRAD WOO MD 05/08/17 Metformin Hcl (Glucophage) 500 Mg Tablet, 500 MG PO BID WITH MEALS, #30 TAB Prov:KONARD WOO MD 05/08/17 Reported Medications Acetaminophen* (Acetaminophen*) 650 Mg Tablet, 650 MG PO Q6H Y for PAIN AND OR ELEVATED TEMP, #30 TAB 05/04/17 Follow-up Plan Oncology appt to be scheduled on Wednesday PCP within 2 weeks for DM care Primary Care Provider Care Physician No Primary Time spent on discharge: > 30 minutes Pending Labs Laboratory Tests Test 05/07/17 12:48 05/07/17 17:50 05/07/17 21:44 05/08/17 05:00 Bedside Glucose 80mg/dL (70-220) 111mg/dL (70-220) 96mg/dL (70-220) Urine Color YELLOW (YELLOW) Urine Clarity SLIGHTLY CLOUDY (CLEAR) Urine pH 7.0 (5.0-9.0) Urine Specific [place] 1.008 (1.003-1.030) Urine Ketones NEGATIVEmg/dL (NEGATIVE) Urine Nitrite NEGATIVEmg/dL (NEGATIVE) Urine Bilirubin NEGATIVEmg/dL (NEGATIVE) Urine Urobilinogen 2+mg/dL (NEGATIVE) Urine Leukocyte Esterase NEGATIVELeu/ul (NEGATIVE) Urine Microscopic RBC 1/HPF (0-5) Urine Microscopic WBC 1/HPF (0-5) Urine Amorphous Crystals MODERATE/HPF (NONE SEEN) Urine Hemoglobin NEGATIVEmg/dL (NEGATIVE) Urine Glucose NEGATIVEmg/dL (NEGATIVE) Urine Total Protein NEGATIVEmg/dl (NEGATIVE) Test 05/08/17 08:28 Bedside Glucose 88mg/dL (70-220) Copies To: CC: HENRY LAWS MD, ELLEN MD May 08, 2017 11:20 Test 05/08/17 08:28 Bedside Glucose 88mg/dL (70-220) KONRAD WOO MD May 08, 2017 11:20
[2017-05-08] MEDS ORDERED: METF500T PO (11:35)
[2017-05-08] MEDS ORDERED: PANT40TA4 PO (11:59)
== END 2017-05-08 13:50 | disposition home or self-care (01) | DRG 841 ==
LOC: E/R 09:58 → MS1 13:28
PROVIDERS: ADMIT Internal Medicine; ATTEND Internal Medicine
PROC: 0DBN8ZX Excision of Sigmoid Colon, Via Natural or Artificial Opening Endoscopic, Diagnostic (ICD-10-PCS; 2017-05-05)
PROC: 0DB98ZX Excision of Duodenum, Via Natural or Artificial Opening Endoscopic, Diagnostic (ICD-10-PCS; principal; 2017-05-05 22:20)
PROC: 0DB68ZX Excision of Stomach, Via Natural or Artificial Opening Endoscopic, Diagnostic (ICD-10-PCS; 2017-05-05 22:20)
DX: C83.13 Mantle cell lymphoma, intra-abdominal lymph nodes (principal); C78.02 Secondary malignant neoplasm of left lung; K26.9 Duodenal ulcer, unspecified as acute or chronic, without hemorrhage or perforation; K25.9 Gastric ulcer, unspecified as acute or chronic, without hemorrhage or perforation; B96.81 Helicobacter pylori [H. pylori] as the cause of diseases classified elsewhere; E11.9 Type 2 diabetes mellitus without complications; K64.8 Other hemorrhoids; R59.1 Generalized enlarged lymph nodes; Z79.84 Long term (current) use of oral hypoglycemic drugs; Z79.4 Long term (current) use of insulin
CPT/HCPCS: 36415; 71260; 74176; 74177; 80048; 80053; 80061; 81001; 81003; 82378; 82962; 83036; 83690; 83735; 84100; 84153; 84154; 84484; 85025; 86301; 88305; 88312; 90686; 96374; 96375; J1650; J1815; J2250; J2270; J2405; J2543; J3010; J7030; Q9967

== ENCOUNTER 2017-05-17 14:36 | Emergency (ER) | payer OTHER ==
[~2017-05-17] VITALS: Ht 167.6 cm; Wt 63.3 kg
[~2017-05-17 14:36] MED LIST: ACET-2047 PO; METF500T PO; PANT40TA4 PO
[2017-05-17 14:50] VITALS: Ht 167.6 cm; Wt 63.3 kg
[2017-05-17] MEDS ORDERED: HYDROmorphONE 2 MG/ML SYG IM STA (18:15)
[2017-05-17] MEDS ORDERED: ONDANSETRON (ODT) 4 MG TAB ODT STA (18:15)
[2017-05-17] MEDS ORDERED: DOCU-144 PO (18:17)
[2017-05-17] MEDS ORDERED: HYDR-902 PO (18:17)
[2017-05-17 19:11] VITALS: BP 105/68; PULSE 78; RESP 16; TEMP 98.3
--- NOTE | 2017-05-17 19:45 | ERD ---
ER Documentation Chief Complaint Chief Complaint abdominal pain x1 month HPI Patient is a 62-year-old male with colon cancer presents with abdominal pain. The abdominal pain started 3 weeks ago. It has been diffuse and constant. He tried "a pain med" this morning. He does not know what medication it was. He was recently found to have colon cancer. He was admitted and discharged on May 08. He denies fevers. ROS All systems reviewed and are negative except as per history of present illness. Medications Home Meds Active Scripts Docusate Sodium* (Colace*) 100 Mg Capsule, 100 MG PO TID, #30 CAP Prov:SHWETHA CABRERA MD 05/17/17 Hydrocodone/Acetaminophen ([place] 10-325 Tablet) 1 Each Tablet, 1 TAB PO Q6H Y for PAIN, #16 TAB Prov:SHWETHA CABRERA MD 05/17/17 Pantoprazole* (Pantoprazole*) 40 Mg Tablet.dr, 40 MG PO AC BREAKFAST for 30 Days , #30 TAB Prov:KONRAD WOO MD 05/08/17 Metformin Hcl (Glucophage) 500 Mg Tablet, 500 MG PO BID WITH MEALS, #30 TAB Prov:KONRAD WOO MD 05/08/17 Reported Medications Acetaminophen* (Acetaminophen*) 650 Mg Tablet, 650 MG PO Q6H Y for PAIN AND OR ELEVATED TEMP, #30 TAB 05/04/17 Allergies Allergies: Coded Allergies: No Known Allergy (Unverified , 05/04/17) PMhx/Soc History of Surgery: No Anesthesia Reaction: No Hx Neurological Disorder: No Hx Respiratory Disorders: No Hx Cardiac Disorders: No Hx Psychiatric Problems: No Hx Miscellaneous Medical Probl: Yes (Stomach Cancer) Hx Alcohol Use: No Hx Substance Use: No Hx Tobacco Use: No Smoking Status: Never smoker FmHx Family History: No diabetes Physical Exam Vitals Vital Signs Date Time Temp Pulse Resp B/P Pulse Ox O2 Delivery O2 Flow Rate FiO2 05/17/17 19:11 98.3 78 16 105/68 97 Room Air 05/17/17 14:50 98.0 98 18 119/72 96 Physical Exam Const: No acute distress Head: Atraumatic Eyes: Normal Conjunctiva ENT: Normal External Ears, Nose and Mouth. Neck: Full range of motion..~ No meningismus. Resp: Clear to auscultation bilaterally Cardio: Regular rate and rhythm, no murmurs Abd: Soft, minimal diffuse tenderness to palpation without rebound or guarding Skin: No petechiae or rashes Back: No midline or flank tenderness Ext: No cyanosis, or edema Neur: Awake and alert Psych: Normal Mood and Affect Results 24 hrs Current Medications Medications (Trade) Dose Ordered Sig/Mary Route PRN Reason Start Time Stop Time Status Last Admin Dose Admin Hydromorphone HCl (Dilaudid) 2 mg ONCE STAT IM 05/17/17 18:15 05/17/17 18:16 DC 05/17/17 18:42 Ondansetron HCl (Zofran Odt) 4 mg ONCE STAT ODT 05/17/17 18:15 05/17/17 18:16 DC 05/17/17 18:42 Procedures/MDM Patient is a 62-year-old male presents with abdominal pain. He has diffuse abdominal pain without localizing exam. The patient has recently diagnosed colon cancer. I believe his pain is likely related to the colon cancer. I doubt appendicitis, cholecystitis, pancreatitis, or bowel obstruction. The patient was given Dilaudid and Zofran. He will be given a prescription for Cove and Colace. He will need to follow-up closely with his primary doctor within 24-48 hours. He was recently admitted and had a full workup at that time. I do not believe he requires readmission at this time. Departure Diagnosis: Primary Impression: Abdominal pain Abdominal location: generalized Qualified Code: R10.84 - Generalized abdominal pain Condition: Fair Patient Instructions: Abdominal Pain Referrals: Your doctor Additional Instructions: Llame al doctor MAANA y eboni jeffrey JOSE PARA DENTRO DE 1-2 PARSON.Dgale a la secretaria que nosotros le instruimos hacer esta jose.Avise o llame si pitts condicin se empeora antes de la jose. Regresa aqui si peor o no mejor. SHWETHA CABRERA MD May 17, 2017 19:45
== END 2017-05-17 19:12 | disposition home or self-care (01) ==
LOC: E/R 14:36
DX: R10.84 Generalized abdominal pain (principal); Z79.84 Long term (current) use of oral hypoglycemic drugs; Z85.038 Personal history of other malignant neoplasm of large intestine
CPT/HCPCS: 96372; 99284; J1170

== ENCOUNTER 2017-06-01 20:05 | Emergency (ER) | payer SELFPAY ==
[~2017-06-01] VITALS: Ht 157.5 cm; Wt 56.0 kg
[~2017-06-01 20:05] MED LIST changes: +DOCU-144 PO; +HYDR-902 PO
[2017-06-01 20:49] VITALS: Ht 157.5 cm; Wt 56.0 kg
[2017-06-01] MEDS ORDERED: HYDROmorphONE 1 MG/ML SYG IM STA (23:52)
[2017-06-02 00:10] VITALS: BP 149/92; PULSE 88; RESP 17
--- NOTE | 2017-06-02 00:27 | ERD ---
ER Documentation Chief Complaint Chief Complaint BIB SELF, CC: "ABDOMINAL PAIN, I HAVE LYMPHOMA, I RAN OUT OF MEDICINE" HPI 62-year-old male comes in with abdominal pain secondary to lymphoma. Patient states that he ran out of his medications. Pain is mild to moderate intensity, use in location with no exacerbating or alleviating factors. ROS All systems reviewed and are negative except as per history of present illness. Medications Home Meds Active Scripts Docusate Sodium* (Colace*) 100 Mg Capsule, 100 MG PO TID, #30 CAP Prov:SHWETHA CABRERA MD 05/17/17 Hydrocodone/Acetaminophen ([place] 10-325 Tablet) 1 Each Tablet, 1 TAB PO Q6H Y for PAIN, #16 TAB Prov:SHWETHA CABRERA MD 05/17/17 Pantoprazole* (Pantoprazole*) 40 Mg Tablet.dr, 40 MG PO AC BREAKFAST for 30 Days , #30 TAB Prov:KONRAD WOO MD 05/08/17 Metformin Hcl (Glucophage) 500 Mg Tablet, 500 MG PO BID WITH MEALS, #30 TAB Prov:KONRAD WOO MD 05/08/17 Reported Medications Acetaminophen* (Acetaminophen*) 650 Mg Tablet, 650 MG PO Q6H Y for PAIN AND OR ELEVATED TEMP, #30 TAB 05/04/17 Allergies Allergies: Coded Allergies: No Known Allergy (Unverified , 05/04/17) PMhx/Soc History of Surgery: No Anesthesia Reaction: No Hx Neurological Disorder: No Hx Respiratory Disorders: No Hx Cardiac Disorders: No Hx Psychiatric Problems: No Hx Miscellaneous Medical Probl: Yes (Stomach Cancer) Hx Alcohol Use: No Hx Substance Use: No Hx Tobacco Use: No Physical Exam Vitals Vital Signs Date Time Temp Pulse Resp B/P Pulse Ox O2 Delivery O2 Flow Rate FiO2 06/01/17 20:49 98.6 96 18 126/80 100 Physical Exam Const: [] Head: Atraumatic Eyes: Normal Conjunctiva ENT: Normal External Ears, Nose and Mouth. Neck: Full range of motion..~ No meningismus. Resp: Clear to auscultation bilaterally Cardio: Regular rate and rhythm, no murmurs Abd: Soft, non tender, non distended. Normal bowel sounds Skin: No petechiae or rashes Back: No midline or flank tenderness Ext: No cyanosis, or edema Neur: Awake and alert Psych: Normal Mood and Affect Results 24 hrs Current Medications Medications (Trade) Dose Ordered Sig/Mary Route PRN Reason Start Time Stop Time Status Last Admin Dose Admin Hydromorphone HCl (Dilaudid) 1 mg ONCE STAT IM 06/01/17 23:52 06/01/17 23:53 DC 06/02/17 00:03 Procedures/MDM Decision-makin. Mild chronic abdominal pain secondary lymphoma. Pain treated here. Patient now pain-free. Patient be discharged home with refills of his medications. Departure Diagnosis: Primary Impression: Abdominal pain Abdominal location: unspecified location Qualified Code: R10.9 - Abdominal pain, unspecified abdominal location Condition: Stable LILIYA MILTON Jun 02, 2017 00:27
[2017-06-02] MEDS ORDERED: PANT40TA4 PO (00:28)
[2017-06-02] MEDS ORDERED: METF500T PO (00:28)
[2017-06-02] MEDS ORDERED: DOCU-144 PO (00:28)
[2017-06-02] MEDS ORDERED: HYDR-902 PO (00:28)
[2017-06-02] MEDS ORDERED: HYDROmorphONE 1 MG/ML SYG IV STA (00:31)
[2017-06-02] MEDS ORDERED: EPINEPHrine 1 MG INJ ONE (21:17)
== END 2017-06-02 00:59 | disposition home or self-care (01) ==
LOC: E/R 20:05
DX: R10.9 Unspecified abdominal pain (principal); Z79.84 Long term (current) use of oral hypoglycemic drugs; Z85.028 Personal history of other malignant neoplasm of stomach
CPT/HCPCS: 96372; 99284; J0171; J1170